=== PATIENT | female | born 1965 | race American Indian/Alaskan Native ===

== ENCOUNTER 2017-05-07 20:41 | Inpatient (IN) | payer BC ==
[2017-05-07 20:45] VITALS: BMI 30.2
--- NOTE | 2017-05-07 21:16 | ED PDOC ---
Arrival/HPI - General Chief Complaint: Weakness/Neurological Deficit Time Seen by Provider: 05/07/17 20:53 Historian: Patient - History of Present Illness Narrative History of Present Illness (Text): 05/07/17 21:05 A 51 year old female, whose past medical history includes CVA with no residual weakness and hyperlipidemia, presents to the emergency department complaining of right arm numbness since 13:00 today. Patient reports approximately 20 minutes prior to arrival she developed right arm heaviness and tingling in her right leg. Patient noted a mild headache and states she experienced a "burst of light" in bilateral eyes. She states her symptoms have slightly improved since. Patient notes decrease appetite for 1 week but denies any dizziness, fever, chills, nausea, vomiting, diarrhea, abdominal pain, urinary symptoms, chest pain, shortness of breath or any other complaints. Patient takes baby Aspirin daily. PMD: Dr. 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) Quality: Other Context: Home Past Medical History - Provider Review Nursing Documentation Reviewed: Yes - Infectious Disease Hx of Infectious Diseases: None - Cardiac Hx Cardiac Disorders: Yes - Pulmonary Hx Respiratory Disorders: Yes (SINUSITIS) - Neurological Hx Neurological Disorder: Yes Hx Transient Ischemic Attacks (TIA): Yes (11-08-16) - HEENT Hx HEENT Disorder: No - Renal Hx Renal Disorder: No - Endocrine/Metabolic Hx Endocrine Disorders: No - Hematological/Oncological Hx Blood Disorders: No - Integumentary Hx Dermatological Disorder: No - Musculoskeletal/Rheumatological Hx Musculoskeletal Disorders: No Hx Falls: No - Gastrointestinal Hx Gastrointestinal Disorders: No - Genitourinary/Gynecological Hx Genitourinary Disorders: No - Psychiatric Hx Psychophysiologic Disorder: No Hx Substance Use: No - Anesthesia Hx Anesthesia: No Family/Social History - Physician Review Nursing Documentation Reviewed: Yes Family/Social History: No Known Family HX Smoking Status: Never Smoked Hx Alcohol Use: No Hx Substance Use: No Allergies/Home Meds Allergies/Adverse Reactions: Allergies No Known Allergies Allergy (Verified 05/07/17 20:44) Review of Systems - Physician Review All systems were reviewed & negative as marked: Yes - Review of Systems Constitutional: Night Sweats. absent: Fevers Eyes: Vision Changes Respiratory: absent: SOB Cardiovascular: absent: Chest Pain Gastrointestinal: Appetite Changes (decrease appetite). absent: Abdominal Pain , Diarrhea, Nausea, Vomiting Genitourinary Female: absent: Dysuria, Frequency, Hematuria, Urine Output Changes Musculoskeletal: Other (Right arm numbness/heaviness, Right leg tingling) Neurological: Headache, Focal Weakness. absent: Dizziness Physical Exam Vital Signs Reviewed: Yes Vital Signs Temp Pulse Resp BP Pulse Ox 05/07/17 22:11 64 16 128/75 98 05/07/17 20:54 98.4 F 76 16 143/64 95 Temperature: Afebrile Blood Pressure: Normal Pulse: Regular Respiratory Rate: Normal Appearance: Positive for: Well-Appearing, Non-Toxic, Comfortable Pain Distress: None Mental Status: Positive for: Alert and Oriented X 3 Finger Stick Blood Glucose: 104 - Systems Exam Head: Present: Atraumatic, Normocephalic Pupils: Present: PERRL Extroacular Muscles: Present: EOMI Conjunctiva: Present: Normal Mouth: Present: Moist Mucous Membranes Pharnyx: Present: Normal. No: ERYTHEMA, EXUDATE Neck: Present: Normal Range of Motion Respiratory/Chest: Present: Clear to Auscultation, Good Air Exchange. No: Respiratory Distress, Accessory Muscle Use Cardiovascular: Present: Regular Rate and Rhythm, Normal S1, S2. No: Murmurs Abdomen: Present: Normal Bowel Sounds. No: Tenderness, Distention, Peritoneal Signs Back: Present: Normal Inspection Upper Extremity: Present: Normal Inspection, Normal ROM, NORMAL PULSES, Neurovascularly Intact. No: Cyanosis, Edema, Tenderness, Swelling, Erythema, Temperature Abnormalties, Deformity Lower Extremity: Present: Normal Inspection, NORMAL PULSES, Normal ROM, Neurovascularly Intact. No: Edema, CALF TENDERNESS, Tenderness, Swelling, Erythema, Deformity, Temperature Abnormalties Neurological: Present: GCS=15, CN II-XII Intact, Speech Normal, Motor Func Grossly Intact, Normal Sensory Function, Normal Cerebellar Funct, Norm Deep Tendon Reflexes, Gait Normal, Memory Normal Skin: Present: Warm, Dry, Normal Color. No: Rashes Psychiatric: Present: Alert, Oriented x 3, Normal Insight, Normal Concentration Medical Decision Making ED Course and Treatment: 05/07/17 21:05 Impression: A 51 year old female with right arm numbness/heaviness, right leg tingling, mild headache and vision changes. Patient reports her symptoms have improved since her arrival to the emergency room. NIHSS is zero. Differential: TIA vs. CVA Plan: -- Head CT -- Chest xray -- EKG -- Labs -- Urinalysis -- Reassess and disposition Progress Notes: 05/07/17 21:35 Chest xray read and interpreted by me, which shows no active disease. Report Date: 05/07/17 21:56 EXAM: CT Head Without Intravenous Contrast Dictated and Authenticated by: Zac Lam MD IMPRESSION: 1. No definite acute intracranial abnormality. Acute infarction may be CT occult within first 24 hours. If a focal deficit persists, consider followup CT or MRI for further evaluation. 2. Incidental/non-acute findings are described above. 05/07/17 22:20 Patient with noted history. NIHSS is zero and therefore not a tpa candidate. Brain CT with no acute findings. Case discussed with Dr. Pierre, covering Dr. Jennifer Murray, who agreed with 324 mg of asa and said to load with 300 mg of plavix and start on IVF. Case had been discussed with Dr. Singh for placement on her service. 05/07/17 22:33 Regarding patient's loss of appetite, she is afebrile. WBC is 12.7; CXR is normal. Urine is pending. 05/07/17 22:41 Patient's urine shows UTI; labs with mild leukocytosis - will start on iv abx for UTI. - Lab Interpretations Lab Results: 05/07/17 20:50 05/07/17 20:50 Lab Results 05/07/17 21:51: Urine Color Yellow, Urine Appearance Clear, Urine pH 6.0, Ur Specific [place] >= 1.030, Urine Protein Trace H, Urine Glucose (UA) Negative, Urine Ketones 15 H, Urine Blood Negative, Urine Nitrate Negative, Urine Bilirubin Negative, Urine Urobilinogen 1.0 H, Ur Leukocyte Esterase Moderate H, Urine RBC 2 - 5, Urine WBC 20 - 25, Ur Epithelial Cells 6 - 8, Urine Bacteria Many, Urine HCG, Qual Negative 05/07/17 21:00: Blood Type O POSITIVE, Antibody Screen Negative, BBK History Checked Patient has bt 05/07/17 20:50: Sodium 142, Potassium 3.7, Chloride 102, Carbon Dioxide 26, Anion Gap 18, BUN 11, Creatinine 0.7, Est GFR ( Amer) > 60, Est GFR (Non- Af Amer) > 60, Random Glucose 94, Calcium 9.4, Total Bilirubin 0.9, AST 29, ALT 47, Alkaline Phosphatase 71, Lactate Dehydrogenase 543, Total Creatine Kinase 97 , Troponin I < 0.01, NT-Pro-B Natriuret Pep 31.8, Total Protein 8.9 H, Albumin 4.6, Globulin 4.3, Albumin/Globulin Ratio 1.1, Triglycerides 94, Cholesterol 218 H, LDL Cholesterol Direct 146 H, HDL Cholesterol 51, Lipase 96 05/07/17 20:50: PT 12.4 H, INR 1.15 H, APTT 27.2 05/07/17 20:50: WBC 12.7 H D, RBC 4.49, Hgb 13.1, Hct 41.5, MCV 92.4, MCH 29.2, MCHC 31.6, RDW 14.3, Plt Count 737 H* D, MPV 10.1, Gran % 60.0, Lymph % (Auto) 31.2, [place] % (Auto) 8.2 H, Eos % (Auto) 0.5 L, Baso % (Auto) 0.1, Gran # 7.63 H , Lymph # 4.0 H, [place] # 1.1 H, Eos # 0.1, Baso # 0.01 I have reviewed the lab results: Yes - RAD Interpretation Radiology Orders: 05/07/17 21:05 HEAD W/O CONTRAST [CT] Stat CHEST ONE VIEW [RAD] Stat - Medication Orders Current Medication Orders: Sodium Chloride (Sodium Chloride 0.9%) 1,000 mls @ 100 mls/hr IV .Q10H STA Stop: 05/08/17 08:14 Last Admin: 05/07/17 22:39 Dose: 100 mls/hr Ceftriaxone Sodium (Rocephin 1 Gram Ivpb) 100 mls @ 200 mls/hr IV ONCE STA PRN Reason: Protocol Stop: 05/07/17 23:09 Discontinued Medications Aspirin (Aspirin Chewable) 324 mg PO STAT STA Stop: 05/07/17 22:08 Last Admin: 05/07/17 22:19 Dose: 324 mg Clopidogrel Bisulfate (Plavix) 300 mg PO STAT STA Stop: 05/07/17 22:17 Last Admin: 05/07/17 22:37 Dose: 300 mg NIHSS Scale ([place]) Time Performed: 21:05 - How Severe is the Stoke Baseline Level of Consciousness: 0=Alert LOC to Questions: 0=Both comments correct LOC to commands: 0=Obeys both correctly Best Gaze: 0=Normal Visual: 0=No visual loss Facial: 0=Normal Motor Arm - Left: 0=No drift Motor Arm - Right: 0=No drift Motor Leg - Left: 0=No drift Motor Leg - Right: 0=No drift Limb Ataxia: 0=Absent Sensory: 0=Normal Best Language: 0=No aphasia Dysarthia: 0=Normal articulation Extinction & Inattention (Neglect): 0=Normal, no object Score: 0 Risk Level: No Stroke Risk - Scribe Statement The provider has reviewed the documentation as recorded by the Alexib[place]uyễn [place] Provider Scribe Attestation: All medical record entries made by the Scribe were at my direction and personally dictated by me. I have reviewed the chart and agree that the record accurately reflects my personal performance of the history, physical exam, medical decision making, and the department course for this patient. I have also personally directed, reviewed, and agree with the discharge instructions and disposition. Disposition/Present on Arrival - Present on Arrival Any Indicators Present on Arrival: No History of DVT/PE: No History of Uncontrolled Diabetes: No Urinary Catheter: No History of Decub. Ulcer: No History Surgical Site Infection Following: None - Disposition Have Diagnosis and Disposition been Completed?: Yes Diagnosis: TIA (transient ischemic attack), Loss of appetite, Urinary tract infection Disposition: HOSPITALIZED Disposition Time: 21:30 Patient Plan: Observation, Telemetry Patient Problems: Current Active Problems Problem Status Onset Loss of appetite Acute TIA (transient ischemic attack) Acute Condition: FAIR
[2017-05-07 21:30] LABS: ALB/GLOB RATIO 1.1 (1.1-1.8); ALBUMIN 4.6 g/dL (3.0-4.8); ALT/SGPT 47 U/L (7-56); AST/SGOT 29 U/L (15-39); BLOOD UREA NITROGEN 11 mg/dL (7-21); CALCIUM 9.4 mg/dL (8.4-10.5); GFR AFRICAN-AMERICAN > 60; GFR NON-AFRICAN AMERICAN > 60; HDL CHOLESTEROL 51 mg/dL (29-60); LIPASE 96 U/L (23-300)
[2017-05-07 21:34] LABS: INR 1.15 (0.93-1.08); PARTIAL THROMBOPLASTIN TIME 27.2 Seconds (23.7-30.8); PROTHROMBIN TIME 12.4 Seconds (9.9-11.8)
[2017-05-07 21:40] LABS: LDL CHOLESTEROL 146 mg/dL (0-129)
[2017-05-07 21:41] LABS: B-TYPE NATRIURETIC PEPTIDE 31.8 pg/mL (0-450); TROPONIN I < 0.01 ng/mL
[2017-05-07 21:57] LABS: HEMOGLOBIN 13.1 gm/dL (12.0-16.0); MEAN CELL VOLUME 92.4 fL (80.0-105.0); MEAN CORPUSCULAR HEMOGLOBIN 29.2 pg (25.0-35.0); MEAN CORPUSCULAR HGB CONC 31.6 g/dl (31.0-37.0); RBC 4.49 10^6/uL (3.5-6.1); WHITE BLOOD COUNT 12.7 10^3/ul (4.5-11.0)
[2017-05-07 21:58] LABS: RED CELL DISTRIBUTION WIDTH 14.3 % (11.5-14.5)
[2017-05-07 22:00] LABS: BASO % 0.1 % (0.0-3.0); EOS # 0.1 (0.0-0.7); EOS % 0.5 % (1.5-5.0); GRAN # 7.63 (1.4-6.5); LYMPH % 31.2 % (22.0-35.0); MEAN PLATELET VOLUME 10.1 fl (7.0-11.0); MONO # 1.1 (0.1-0.6); MONO % 8.2 % (1.0-6.0); PLATELET COUNT 737 10^3/uL (120.0-450.0)
[2017-05-07 22:01] LABS: BASO # 0.01 K/mm3 (0.0-2.0)
[2017-05-07 22:11] LABS: HCG,QUALITATIVE URINE NEGATIVE (NEGATIVE); URINE APPEARANCE CLEAR (CLEAR); URINE COLOR YELLOW (YELLOW)
[2017-05-07 22:13] LABS: URINE BILIRUBIN NEGATIVE (NEGATIVE); URINE BLOOD NEGATIVE (NEGATIVE); URINE GLUCOSE (UA) NEGATIVE (NEGATIVE); URINE LEUKOCYTE ESTERASE MODERATE Leu/uL (NEGATIVE); URINE NITRATE NEGATIVE (NEGATIVE); URINE PROTEIN TRACE mg/dL (<30 mg/dL)
[2017-05-07] MEDS ORDERED: Sodium Chloride 0.9% 1,000 ML IV STA (22:15)
[2017-05-07 22:37] LABS: URINE BACTERIA MANY (NEG); URINE WBC 20 - 25 /hpf (0-6)
[2017-05-07] MEDS ORDERED: cefTRIAXone 1 gm 1 GM/100 ML BAG IV STA (22:40)
--- NOTE | 2017-05-08 08:19 | CT ---
PROCEDURE: CT HEAD WITHOUT CONTRAST. HISTORY: R arm heaviness COMPARISON: Prior head CT 11/08/2016 TECHNIQUE: Axial computed tomography images were obtained through the head/brain without intravenous contrast. Radiation dose: Total exam DLP = 677 mGy-cm. This CT exam was performed using one or more of the following dose reduction techniques: Automated exposure control, adjustment of the mA and/or kV according to patient size, and/or use of iterative reconstruction technique. FINDINGS: HEMORRHAGE: No intracranial hemorrhage. BRAIN: No mass effect or edema. No atrophy or chronic microvascular ischemic changes. VENTRICLES: Unremarkable. No hydrocephalus. CALVARIUM: Unremarkable. PARANASAL SINUSES: Unremarkable as visualized. No significant inflammatory changes. MASTOID AIR CELLS: Unremarkable as visualized. No inflammatory changes. OTHER FINDINGS: None. IMPRESSION: Normal CT of the Head. No significant interval change compared to prior head CT dated 11/08/2016. Consider follow-up CT or MRI if clinically indicated.
--- NOTE | 2017-05-08 08:44 | RAD ---
PROCEDURE: CHEST RADIOGRAPH, 1 VIEW HISTORY: R arm heaviness COMPARISON: 11/16/2016 FINDINGS: LUNGS: Clear. PLEURA: No pneumothorax or pleural fluid seen. CARDIOVASCULAR: Normal. OSSEOUS STRUCTURES: No significant abnormalities. VISUALIZED UPPER ABDOMEN: Normal. OTHER FINDINGS: None. IMPRESSION: No active disease.
--- NOTE | 2017-05-08 11:39 | CP.PCM.CON ---
History of Present Illness - History of Present Illness History of Present Illness: Mrs. Dejesus is a 51-year-old woman with a past medical history of dyslipidemia and previous stroke who states that yesterday she developed the sudden onset of visual halos, then had right arm shaking and weakness followed by right leg numbness and tingling. This lasted for about 20 minutes and then resolved. Today, she feels like is back to normal, but she feels like she has nervousness throughout her body and feels on edge. She has been feeling this was for the past week and has not had an appetite. She was on Aspirin 81 mg daily, but has not taken it for a few days since she has not eaten anything. Review of Systems - Review of Systems All systems: reviewed and no additional remarkable complaints except Past Patient History - Infectious Disease Hx of Infectious Diseases: None - Past Social History Smoking Status: Never Smoked - CARDIAC Hx Hypercholesterolemia: Yes - PULMONARY Hx Respiratory Disorders: Yes (SINUSITIS) - NEUROLOGICAL Hx Transient Ischemic Attacks (TIA): Yes (10/2016) - HEENT Hx HEENT Problems: Yes (Sinusitis) - RENAL Hx Chronic Kidney Disease: No - ENDOCRINE/METABOLIC Hx Endocrine Disorders: No - HEMATOLOGICAL/ONCOLOGICAL Hx Blood Disorders: No - INTEGUMENTARY Hx Dermatological Problems: No - MUSCULOSKELETAL/RHEUMATOLOGICAL Hx Falls: No - GASTROINTESTINAL Hx Gastrointestinal Disorders: No - GENITOURINARY/GYNECOLOGICAL Hx Urinary Tract Infection: Yes - PSYCHIATRIC Hx Substance Use: No - SURGICAL HISTORY Hx Surgeries: No - ANESTHESIA Hx Anesthesia: No Meds Allergies/Adverse Reactions: Allergies Allergy/AdvReac Type Severity Reaction Status Date / Time No Known Allergies Allergy Verified 05/07/17 20:44 - Medications Medications: Current Medications Aspirin (Ecotrin) 81 mg PO DAILY [facility] Last Admin: 05/08/17 10:54 Dose: 81 mg Atorvastatin Calcium (Lipitor) 80 mg PO DIN [facility] Physical Exam - Constitutional Appears: Well - Head Exam Head Exam: ATRAUMATIC, NORMAL INSPECTION, NORMOCEPHALIC - Eye Exam Eye Exam: EOMI, Normal appearance, PERRL - ENT Exam ENT Exam: Mucous Membranes Moist, Normal Exam - Neck Exam Neck exam: Positive for: Normal Inspection - Respiratory Exam Respiratory Exam: Clear to Auscultation Bilateral, NORMAL BREATHING PATTERN - Cardiovascular Exam Cardiovascular Exam: REGULAR RHYTHM, +S1, +S2 - GI/Abdominal Exam GI & Abdominal Exam: Normal Bowel Sounds, Soft. absent: Tenderness - Rectal Exam Rectal Exam: Deferred - Extremities Exam Extremities exam: Positive for: normal inspection - Back Exam Back exam: NORMAL INSPECTION - Neurological Exam Neurological exam: Alert, CN II-XII Intact, Normal Gait, Oriented x3, Reflexes Normal - Expanded Neurological Exam Expanded Patient oriented to: person, place, time Cranial nerves: EOM's Intact: Normal, Facial Sensation: Normal Ataxia: No Cerebellar Function: Finger to Nose: Normal Upper motor neuron: Babinski Sign: Normal, Jaime Neglect: Normal Sensory exam: Lower Extremity Light Touch: Normal, Lower Extremity Pin Prick: Normal, Upper Extremity Light Touch: Normal, Upper Extremity Pin Prick: Normal Neuro motor strength exam: Left Upper Extremity: 5, Right Upper Extremity: 5, Left Lower Extremity: 5, Right Lower Extremity: 5 DTR: Achilles Tendon Left: 2+, Achilles Tendon Right: 2+, Bicep Left: 2+, Bicep Right: 2+, Brachioradialis Left: 2+, Brachioradialis Right: 2+, Patellar Left: 2 +, Patellar Right: 2+, Tricep Left: 2+, Tricep Right: 2+ - Psychiatric Exam Psychiatric exam: Normal Affect, Normal Mood - Skin Skin Exam: Dry, Intact, Normal Color, Warm Results - Vital Signs Recent Vital Signs: Last Vital Signs Temp 98 F 05/08/17 06:00 Pulse 53 L 05/08/17 06:00 Resp 20 05/08/17 06:00 BP 120/71 05/08/17 06:00 Pulse Ox 98 05/08/17 06:00 - Labs Result Diagrams: 05/07/17 20:50 05/07/17 20:50 Labs: Laboratory Results - last 24 hr 05/08/17 07:30 POC Glucose (mg/dL) 111 H - Imaging and Cardiology CT scan - head Status: Image reviewed by me, Report reviewed by me (No acute findings. ) Assessment & Plan (1) TIA (transient ischemic attack) Assessment and Plan: The history of shaking and numbness/tingling preceded by a visual halo or aura is concerning for epileptiform discharges as well as a possible TIA. I recommend the followin. Telemetry 2. MRI of the brain with and without contrast 3. Echocardiogram with bubble study 4. Continue aspirin 81 mg daily 5. Continue lipitor 80 mg daily to maintain LDL< 100 6. Fluids with NS at 100 mL/hr 7. EEG awake and drowsy for 30 mins 8. DVT Px 9. PT/OT eval Thank you. Status: Acute Priority: High
--- NOTE | 2017-05-08 12:54 | CARD ---
APPROVED REPORT EKG Measurement Heart [id number] <Conclusion> Normal sinus rhythm Normal ECG
--- NOTE | 2017-05-08 13:51 | CP.PCM.CON ---
<Juan M Garcia - Last Filed: 05/08/17 16:00> History of Present Illness - History of Present Illness History of Present Illness: PGY4 Initial GI Consult Vickie Dejesus is a 51F w/ hx of CVA who presented to the ED with complaints of Right arm numbness and weakness. She is curretly being workup for TIA vs CVA vs seizure. GI was consulted for loss of appetite. Pt states that she has had a loss of appetite acutely for 1 week. She denies being nauseous prior today. Denies any fever, chills, diaphoresis, or diarrhea. She states that this symptoms is relatively new. Pt notes that she has lost around 15lbs since October and it was unintentional. She states that she has had some recent stress and anxiety in her life and may have subsequently lead to a lack of appetite. She denies any BRBPR, melena, hematachezia. Pt denies having a colonoscopy and endoscopy in the past. She has normal BM, which are formed and daily. Pt has no associated abd pain. She does mention a sour taste in her mouth for the past week. ROS: 12- point ROS conducted, neg other than what was stated above PMHX: CVA, HL PSHx: None Social hx: denies smoking, EtOH, or illicit drugs Family hx: HTN and HL, denies any colon a or GI Ca in the family Past Patient History - Infectious Disease Hx of Infectious Diseases: None - Past Social History Smoking Status: Never Smoked - CARDIAC Hx Hypercholesterolemia: Yes - PULMONARY Hx Respiratory Disorders: Yes (SINUSITIS) - NEUROLOGICAL Hx Transient Ischemic Attacks (TIA): Yes (10/2016) - HEENT Hx HEENT Problems: Yes (Sinusitis) - RENAL Hx Chronic Kidney Disease: No - ENDOCRINE/METABOLIC Hx Endocrine Disorders: No - HEMATOLOGICAL/ONCOLOGICAL Hx Blood Disorders: No - INTEGUMENTARY Hx Dermatological Problems: No - MUSCULOSKELETAL/RHEUMATOLOGICAL Hx Falls: No - GASTROINTESTINAL Hx Gastrointestinal Disorders: No - GENITOURINARY/GYNECOLOGICAL Hx Urinary Tract Infection: Yes - PSYCHIATRIC Hx Substance Use: No - SURGICAL HISTORY Hx Surgeries: No - ANESTHESIA Hx Anesthesia: No Meds Allergies/Adverse Reactions: Allergies Allergy/AdvReac Type Severity Reaction Status Date / Time No Known Allergies Allergy Verified 05/07/17 20:44 - Medications Medications: Current Medications Aspirin (Ecotrin) 81 mg PO DAILY [facility] Last Admin: 05/08/17 10:54 Dose: 81 mg Atorvastatin Calcium (Lipitor) 80 mg PO DIN [facility] Ceftriaxone Sodium (Rocephin 1 Gram Ivpb) 1 gm in 100 mls @ 100 mls/hr IVPB DAILY [facility] PRN Reason: Protocol Physical Exam - Constitutional Appears: Well, No Acute Distress - Head Exam Head Exam: ATRAUMATIC, NORMOCEPHALIC - Eye Exam Eye Exam: EOMI, Normal appearance - ENT Exam ENT Exam: Mucous Membranes Moist, Normal Exam - Respiratory Exam Respiratory Exam: Clear to Auscultation Bilateral, NORMAL BREATHING PATTERN - Cardiovascular Exam Cardiovascular Exam: REGULAR RHYTHM, +S1, +S2 - GI/Abdominal Exam GI & Abdominal Exam: Normal Bowel Sounds, Soft. absent: Diminished Bowel Sounds , Distended, Firm, Guarding, Mass, Organomegaly, Rigid, Tenderness - Extremities Exam Extremities exam: Positive for: normal inspection - Neurological Exam Neurological exam: Alert, Oriented x3 - Psychiatric Exam Psychiatric exam: Anxious, Depressed - Skin Skin Exam: Intact, Normal Color, Warm Results - Vital Signs Recent Vital Signs: Last Vital Signs Temp 98.7 F 05/08/17 11:46 Pulse 59 L 05/08/17 11:46 Resp 20 05/08/17 11:46 BP 125/76 05/08/17 11:46 Pulse Ox 98 05/08/17 06:00 - Labs Result Diagrams: 05/07/17 20:50 05/07/17 20:50 Labs: Laboratory Results - last 24 hr 05/08/17 07:30 POC Glucose (mg/dL) 111 H Assessment & Plan - Assessment and Plan (Free Text) Assessment: Vickie Dejesus is a 51F w/ hx of CVA who presented to the ED for right sided numbess. DDx: TIA vs CVA vs epilepsy. GI was consulted for loss of appetite, which was relatively new for about 1 week. The significant aspect of her current states is a 15lb unintentional weight loss with DDx include r/o malignancy vs depression. Loss of appiptite -continue current diet -recommend psych eval for depression and anxiety -continue reg diet Unintentional Weight loss -15lb loss in 6 months -recommend outpt colon screen for malignancy D/W Dr. Lynn <Jason Lynn - Last Filed: 05/08/17 18:51> Meds - Medications Medications: Current Medications Aspirin (Ecotrin) 81 mg PO DAILY [facility] Last Admin: 05/08/17 10:54 Dose: 81 mg Atorvastatin Calcium (Lipitor) 80 mg PO DIN [facility] Last Admin: 05/08/17 18:28 Dose: 80 mg Ceftriaxone Sodium (Rocephin 1 Gram Ivpb) 1 gm in 100 mls @ 100 mls/hr IVPB DAILY [facility] PRN Reason: Protocol Results - Vital Signs Recent Vital Signs: Last Vital Signs Temp 98.8 F 05/08/17 17:20 Pulse 64 05/08/17 18:00 Resp 20 05/08/17 17:20 BP 134/82 05/08/17 17:20 Pulse Ox 100 05/08/17 17:20 - Labs Result Diagrams: 05/07/17 20:50 05/07/17 20:50 Labs: Laboratory Results - last 24 hr 05/08/17 07:30 POC Glucose (mg/dL) 111 H Attending/Attestation - Attestation I have personally seen and examined this patient.: Yes I have fully participated in the care of the patient.: Yes I have reviewed all pertinent clinical information: Yes Notes (Text): 05/08/17 18:49 51 year old female with a h/o CVA who is admitted with neurological symptoms and evaluation for TIA, we are consulted for weight loss and poor appetite. 1. Loss of appetite 2. Weight loss Plan: -uncertain etiology -no obvious associated GI symptoms on review of systems -no prior GI evaluation -would recommend outpatient egd/colonoscopy to evaluate further and exclude malignancy -no alarm signs like anemia or rectal bleeding -diet as tolerated for now -may be anxiety component as patient admits to a nervous stomach -will sign off
[2017-05-08] MEDS ORDERED: Gadodiamide 287 MG/ML VIAL (15ML) IV ONE (15:01)
--- NOTE | 2017-05-08 16:43 | MRI ---
PROCEDURE: MRI BRAIN WITH AND WITHOUT CONTRAST HISTORY: Seizure like activity COMPARISON: 11/08/2016 MRI TECHNIQUE: Multiplanar, multisequence MR images of the brain were obtained with and without intravenous contrast enhancement. 15 cc of Omniscan FINDINGS: HEMORRHAGE: None DWI: No evidence of an acute or early subacute infarction. BRAIN PARENCHYMA: No mass,mass effect or edema. No atrophy or chronic microvascular ischemic changes. ENHANCEMENT: No abnormal intracranial enhancement. VENTRICLES: Unremarkable. No hydrocephalus. CRANIUM: Unremarkable. ORBITS: Grossly unremarkable. PARANASAL SINUSES/MASTOIDS: Clear VASCULAR SYSTEM: Skull base flow voids intact. OTHER FINDINGS: There is a partially empty sella which is a normal variation.. IMPRESSION: Unremarkable pre and post contrast enhanced MRI of the brain.
--- NOTE | 2017-05-08 23:49 | CP.PCM.HP ---
History of Present Illness - History of Present Illness History of Present Illness: 05/08 Narrative History of Present Illness (Text): A 51 year old female, whose past medical history includes CVA with no residual weakness and hyperlipidemia, presents to the emergency department complaining of right arm numbness since 13:00 today. Patient reports approximately 20 minutes prior to arrival she developed right arm heaviness and tingling in her right leg. Patient noted a mild headache and states she experienced a "burst of light" in bilateral eyes. She states her symptoms have slightly improved since. Patient notes decrease appetite for 1 week but denies any dizziness, fever, chills, nausea, vomiting, diarrhea, abdominal pain, urinary symptoms, chest pain, shortness of breath or any other complaints. Patient takes baby Aspirin daily. pt is seen and examined in her room , daughter is sitting in the room , all qs answered Present on Admission - Present on Admission Any Indicators Present on Admission: No Review of Systems - Constitutional Constitutional: As Per HPI - EENT Eyes: As Per HPI Ears: As Per HPI Nose/Mouth/Throat: As Per HPI - Breasts Breasts: As Per HPI - Cardiovascular Cardiovascular: As Per HPI - Respiratory Respiratory: As Per HPI - Gastrointestinal Gastrointestinal: As Per HPI - Genitourinary Genitourinary: As Per HPI - Reproductive: Female Reproductive:Female: As Per HPI - Menstruation Menstruation: As Per HPI - Musculoskeletal Musculoskeletal: As Per HPI - Integumentary Integumentary: As Per HPI - Neurological Neurological: As Per HPI - Psychiatric Psychiatric: As Per HPI - Endocrine Endocrine: As Per HPI - Hematologic/Lymphatic Hematologic: As Per HPI Past Patient History - Infectious Disease Hx of Infectious Diseases: None - Past Social History Smoking Status: Never Smoked - CARDIAC Hx Hypercholesterolemia: Yes - PULMONARY Hx Respiratory Disorders: Yes (SINUSITIS) - NEUROLOGICAL Hx Transient Ischemic Attacks (TIA): Yes (10/2016) - HEENT Hx HEENT Problems: Yes (Sinusitis) - RENAL Hx Chronic Kidney Disease: No - ENDOCRINE/METABOLIC Hx Endocrine Disorders: No - HEMATOLOGICAL/ONCOLOGICAL Hx Blood Disorders: No - INTEGUMENTARY Hx Dermatological Problems: No - MUSCULOSKELETAL/RHEUMATOLOGICAL Hx Falls: No - GASTROINTESTINAL Hx Gastrointestinal Disorders: No - GENITOURINARY/GYNECOLOGICAL Hx Urinary Tract Infection: Yes - PSYCHIATRIC Hx Substance Use: No - SURGICAL HISTORY Hx Surgeries: No - ANESTHESIA Hx Anesthesia: No Meds Allergies/Adverse Reactions: Allergies Allergy/AdvReac Type Severity Reaction Status Date / Time No Known Allergies Allergy Verified 05/07/17 20:44 Physical Exam - Constitutional Appears: Well - Head Exam Head Exam: ATRAUMATIC, NORMAL INSPECTION, NORMOCEPHALIC - Eye Exam Eye Exam: EOMI, Normal appearance, PERRL Pupil Exam: NORMAL ACCOMODATION, PERRL - ENT Exam ENT Exam: Mucous Membranes Moist, Normal Exam - Neck Exam Neck exam: Positive for: Normal Inspection - Respiratory Exam Respiratory Exam: Clear to Auscultation Bilateral, NORMAL BREATHING PATTERN - Cardiovascular Exam Cardiovascular Exam: REGULAR RHYTHM - GI/Abdominal Exam GI & Abdominal Exam: Normal Bowel Sounds, Soft. absent: Tenderness - Rectal Exam Rectal Exam: NORMAL INSPECTION - Exam Exam: Circumcision, NORMAL INSPECTION External exam: NORMAL EXTERNAL EXAM Speculum exam: NORMAL SPECULUM EXAM Bimanual exam: NORMAL BIMANUAL EXAM - Extremities Exam Extremities exam: Positive for: normal inspection - Back Exam Back exam: NORMAL INSPECTION - Neurological Exam Neurological exam: Alert, CN II-XII Intact, Normal Gait, Oriented x3, Reflexes Normal - Psychiatric Exam Psychiatric exam: Normal Affect, Normal Mood - Skin Skin Exam: Dry, Intact, Normal Color, Warm Results - Vital Signs Recent Vital Signs: Last Vital Signs Temp 98.8 F 05/08/17 17:20 Pulse 57 L 05/08/17 22:00 Resp 20 05/08/17 17:20 BP 134/82 05/08/17 17:20 Pulse Ox 100 05/08/17 17:20 - Labs Result Diagrams: 05/07/17 20:50 05/07/17 20:50 Labs: Laboratory Results - last 24 hr 05/08/17 07:30 POC Glucose (mg/dL) 111 H Assessment & Plan (1) Loss of appetite Status: Acute (2) TIA (transient ischemic attack) Status: Acute Priority: High (3) Urinary tract infection Status: Acute - Assessment and Plan (Free Text) Assessment: Assessment & Plan (1) TIA (transient ischemic attack) Assessment and Plan: The history of shaking and numbness/tingling preceded by a visual halo or aura is concerning for epileptiform discharges as well as a possible TIA. neuro recommendations are the followin. Telemetry 2. MRI of the brain with and without contrast 3. Echocardiogram with bubble study 4. Continue aspirin 81 mg daily 5. Continue lipitor 80 mg daily to maintain LDL< 100 6. Fluids with NS at 100 mL/hr 7. EEG awake and drowsy for 30 mins 8. DVT Px 9. PT/OT eval GI was consulted for loss of appetite, which was relatively new for about 1 week. The significant aspect of her current states is a 15lb unintentional weight loss with DDx include r/o malignancy vs depression. Loss of appiptite -continue current diet -recommend psych eval for depression and anxiety , will call dr valdez mabry -continue reg diet Unintentional Weight loss -15lb loss in 6 months -recommend outpt colon screen for malignancy d/d done with neuro , and pt daughter uti anb, started
[2017-05-09 06:51] LABS: HEMOGLOBIN 12.4 gm/dL (12.0-16.0); MEAN CELL VOLUME 90.8 fL (80.0-105.0); MEAN CORPUSCULAR HEMOGLOBIN 28.6 pg (25.0-35.0); MEAN CORPUSCULAR HGB CONC 31.6 g/dl (31.0-37.0); MEAN PLATELET VOLUME 9.6 fl (7.0-11.0); RBC 4.33 10^6/uL (3.5-6.1); RED CELL DISTRIBUTION WIDTH 13.7 % (11.5-14.5); WHITE BLOOD COUNT 8.4 10^3/ul (4.5-11.0)
[2017-05-09 07:01] LABS: BLOOD UREA NITROGEN 7 mg/dL (7-21); GFR AFRICAN-AMERICAN > 60; GFR NON-AFRICAN AMERICAN > 60
--- NOTE | 2017-05-09 09:10 | CP.PCM.CON ---
History of Present Illness - History of Present Illness History of Present Illness: Shortly pt is a 51 year old female, with not known previous psych h/o, pt was admitted on the medical floor for evaluation of right arm numbness, psych consult was called for evaluation of possible depression and insomnia. pt was seen and examined, discussed with staff, pt presented to have good personal hygiene, calm, cooperative. pt said that after she started to have TIA she was feeling more anxious, pt said "at times I feel anxiety, my heart beating fast", pt said that she is "upset and overthinking about my medical issues". pt denied feeling hopeless or helpless, pt denied thoughts of harming self or others, pt also denied panic attacks, "but I am worried about my health". pt denied v/a/t hallucinations, denied paranoid ideation, pt does not present to be psychotic. pt reported difficulties to fall and to stay asleep, pt said that she is constantly thinking about her job which she finds very stressful. 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 pt said that yesterday at night medical team gave her benadryl and "it helped a lot", pt was educated about sleep hygiene, about melatonin and benadryl. pt was receptive and appreciated. past psych h/o; denied family h/o: denied social h/o: pt lives in [place], with her daughter "we have perfect relationships", denied using alcohol, denied smoking, denied drugs. MSE: pt presented to be alert, oriented in self, time and place, good eye contact, good personal hygiene, speech was low volume, underproductive, mood "I am overthinking a lot", affect was constricted, but reactive,. mood congruent. thought process is coherent and goal directed, thought content: denied v/a/t hallucinations, denied paranoia, does not appear to be psychotic, denied thoughts of harming self or others. I/J are good, impulses are well controlled. Impression: r/o anxiety/depression due to C r/o adjustment d/o Plan: sleep hygiene possible sleep study (polysomnography) benadryl 25mg hs prn for insomnia melatonin 5mg hs prn for insomnia pt deemed not to be in imminent danger to self or others will sign off thank you very much for letting me to participate in care of your pt Past Patient History - Infectious Disease Hx of Infectious Diseases: None - Past Social History Smoking Status: Never Smoked - CARDIAC Hx Hypercholesterolemia: Yes - PULMONARY Hx Respiratory Disorders: Yes (SINUSITIS) - NEUROLOGICAL Hx Transient Ischemic Attacks (TIA): Yes (10/2016) - HEENT Hx HEENT Problems: Yes (Sinusitis) - RENAL Hx Chronic Kidney Disease: No - ENDOCRINE/METABOLIC Hx Endocrine Disorders: No - HEMATOLOGICAL/ONCOLOGICAL Hx Blood Disorders: No - INTEGUMENTARY Hx Dermatological Problems: No - MUSCULOSKELETAL/RHEUMATOLOGICAL Hx Falls: No - GASTROINTESTINAL Hx Gastrointestinal Disorders: No - GENITOURINARY/GYNECOLOGICAL Hx Urinary Tract Infection: Yes - PSYCHIATRIC Hx Substance Use: No - SURGICAL HISTORY Hx Surgeries: No - ANESTHESIA Hx Anesthesia: No Meds Allergies/Adverse Reactions: Allergies Allergy/AdvReac Type Severity Reaction Status Date / Time No Known Allergies Allergy Verified 05/07/17 20:44 - Medications Medications: Current Medications Aspirin (Ecotrin) 81 mg PO DAILY [facility] Last Admin: 05/08/17 10:54 Dose: 81 mg Atorvastatin Calcium (Lipitor) 80 mg PO DIN [facility] Last Admin: 05/08/17 18:28 Dose: 80 mg Famotidine (Pepcid) 40 mg PO HS [facility] Last Admin: 05/09/17 00:18 Dose: Not Given Ceftriaxone Sodium (Rocephin 1 Gram Ivpb) 1 gm in 100 mls @ 100 mls/hr IVPB DAILY [facility] PRN Reason: Protocol Results - Vital Signs Recent Vital Signs: Last Vital Signs Temp 98.7 F 05/09/17 05:25 Pulse 58 L 05/09/17 05:25 Resp 18 05/09/17 05:25 BP 107/69 05/09/17 05:25 Pulse Ox 99 05/09/17 05:25 - Labs Result Diagrams: 05/09/17 06:00 05/09/17 06:00 Labs: Laboratory Results - last 24 hr 05/09/17 05/09/17 06:00 06:00 WBC 8.4 D RBC 4.33 Hgb 12.4 Hct 39.3 MCV 90.8 MCH 28.6 MCHC 31.6 RDW 13.7 Plt Count 662 H MPV 9.6 Sodium 141 Potassium 3.9 Chloride 103 Carbon Dioxide 30 Anion Gap 12 BUN 7 Creatinine 0.8 Est GFR ( Amer) > 60 Est GFR (Non-Af Amer) > 60 Random Glucose 93 Calcium 9.0
[2017-05-09] MEDS: cefTRIAXone 1 gm 1 GM/100 ML BAG IVPB SCH (09:32)
--- NOTE | 2017-05-09 17:12 | CARD ---
APPROVED REPORT EXAM: Two-dimensional and M-mode echocardiogram with Doppler and color Doppler. INDICATION CVA/TIA 2D DIMENSIONS Left Atrium (2D)3.7 (1.6-4.0cm)IVSd0.8 (0.7-1.1cm) LVDd4.6 (3.9-5.9cm)PWd0.9 (0.7-1.1cm) LVDs2.8 (2.5-4.0cm)FS (%) 39.6 % LVEF (%)70.3 (>50%) M-Mode DIMENSIONS Aortic Root3.30 (2.2-3.7cm)Aortic Cusp Exc.2.00 (1.5-2.0cm) Aortic Valve AoV Peak Egmnopfg142.0cm/Rolo Peak GR.9mmHg Mitral Valve MV E Wrgnstpp46.2cm/sMV A Gmptwhdx89.4cm/sE/A ratio0.7 TDI Lateral E' Peak V9.36cm/sMedial E' Peak V6.34cm/sE/Lateral E'6.3 E/Medial E'9.3 Pulmonary Valve PV Peak Rncjgyuv65.4cm/sPV Peak Grad.3mmHg Tricuspid Valve TR Peak Mdgofcrz334uk/sRAP HIPCREKP34mfTdVM Peak Gr.34mmHg [id number] LEFT VENTRICLE The left ventricle is normal size. There is normal left ventricular wall thickness. The left ventricular function is normal. The left ventricular ejection fraction is within the normal range. There is normal LV segmental wall motion. Transmitral Doppler flow pattern is Grade I-abnormal relaxation pattern. RIGHT VENTRICLE The right ventricle is normal size. There is normal right ventricular wall thickness. The right ventricular systolic function is normal. ATRIA The left atrium size is normal. The right atrium size is normal. AORTIC VALVE The aortic valve is normal in structure. No aortic regurgitation is present. There is no aortic valvular stenosis. MITRAL VALVE The mitral valve is mildly thickened. There is no mitral valve regurgitation noted. TRICUSPID VALVE The tricuspid valve is normal in structure. There is mild tricuspid regurgitation. There is mild pulmonary hypertension. GREAT VESSELS The aortic root is normal in size. The IVC is normal in size and collapses >50% with inspiration. PERICARDIAL EFFUSION There is a trace loculated anterior pericardial effusion. <Conclusion> The left ventricle is normal size. There is normal left ventricular wall thickness. The left ventricular function is normal. The left ventricular ejection fraction is within the normal range. There is normal LV segmental wall motion. Transmitral Doppler flow pattern is Grade I-abnormal relaxation pattern. There is mild tricuspid regurgitation. There is mild pulmonary hypertension.
--- NOTE | 2017-05-09 22:43 | CP.PCM.PN ---
Subjective - Date & Time of Evaluation Date of Evaluation: 05/09/17 Time of Evaluation: 11:00 - Subjective Subjective: Shortly pt is a 51 year old female, with not known previous psych h/o, pt was admitted on the medical floor for evaluation of right arm numbness, psych consult was called for evaluation of possible depression and insomnia. pt was seen and examined, discussed with staff, pt presented to have good personal hygiene, calm, cooperative. pt said that after she started to have TIA she was feeling more anxious, pt said "at times I feel anxiety, my heart beating fast", pt said that she is "upset and overthinking about my medical issues". pt denied feeling hopeless or helpless, pt denied thoughts of harming self or others, pt also denied panic attacks, "but I am worried about my health". pt denied v/a/t hallucinations, denied paranoid ideation, pt does not present to be psychotic. pt reported difficulties to fall and to stay asleep, pt said that she is constantly thinking about her job which she finds very stressful. 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 pt said that yesterday at night medical team gave her benadryl and "it helped a lot", pt was educated about sleep hygiene, about melatonin and benadryl. pt was receptive and appreciated. Objective - Vital Signs/Intake and Output Vital Signs (last 24 hours): Temp Pulse Resp BP Pulse Ox 98.7 F 57 L 20 125/73 99 05/09/17 16:00 05/09/17 16:00 05/09/17 12:00 05/09/17 12:00 05/09/17 05:25 Intake and Output: 05/09/17 05/10/17 18:59 06:59 Intake Total 240 540 Balance 240 540 - Medications Medications: Current Medications Aspirin (Ecotrin) 81 mg PO DAILY [facility] Last Admin: 05/09/17 09:32 Dose: 81 mg Atorvastatin Calcium (Lipitor) 80 mg PO DIN [facility] Last Admin: 05/09/17 17:05 Dose: 80 mg Famotidine (Pepcid) 40 mg PO HS [facility] Last Admin: 05/09/17 21:32 Dose: 40 mg Ceftriaxone Sodium (Rocephin 1 Gram Ivpb) 1 gm in 100 mls @ 100 mls/hr IVPB DAILY [facility] PRN Reason: Protocol Last Admin: 05/09/17 09:32 Dose: 100 mls/hr - Labs Labs: 05/09/17 06:00 05/09/17 06:00 PT 12.4 Seconds (9.9-11.8) H 05/07/17 20:50 INR 1.15 (0.93-1.08) H 05/07/17 20:50 APTT 27.2 Seconds (23.7-30.8) 05/07/17 20:50 - Constitutional Appears: Well - Head Exam Head Exam: ATRAUMATIC, NORMAL INSPECTION, NORMOCEPHALIC - Eye Exam Eye Exam: EOMI, Normal appearance, PERRL Pupil Exam: NORMAL ACCOMODATION, PERRL - ENT Exam ENT Exam: Mucous Membranes Moist, Normal Exam - Neck Exam Neck Exam: Full ROM, Normal Inspection. absent: Lymphadenopathy - Respiratory Exam Respiratory Exam: Clear to Ausculation Bilateral, NORMAL BREATHING PATTERN - Cardiovascular Exam Cardiovascular Exam: REGULAR RHYTHM, +S1, +S2. absent: Murmur - GI/Abdominal Exam GI & Abdominal Exam: Soft, Normal Bowel Sounds. absent: Tenderness - Back Exam Back Exam: NORMAL INSPECTION - Neurological Exam Neurological Exam: Alert, Awake, CN II-XII Intact, Normal Gait, Oriented x3 - Psychiatric Exam Psychiatric exam: Normal Affect, Normal Mood - Skin Skin Exam: Dry, Intact, Normal Color, Warm Assessment and Plan (1) Loss of appetite Status: Acute (2) TIA (transient ischemic attack) Status: Acute (3) Urinary tract infection Status: Acute (4) Insomnia Status: Acute (5) Depression Status: Acute - Assessment and Plan (Free Text) Assessment: Impression: r/o anxiety/depression due to [facility] r/o adjustment d/o insomnia , tia , r/o seizure Plan: sleep hygiene possible sleep study (polysomnography) benadryl 25mg hs prn for insomnia melatonin 5mg hs prn for insomnia pt deemed not to be in imminent danger to self or others as per psyche . neuro and gi is on the case , will call sleep specialist on the case
[2017-05-10] MEDS: cefTRIAXone 1 gm 1 GM/100 ML BAG IVPB SCH (09:24)
--- NOTE | 2017-05-11 03:39 | PN ---
DATE: 05/10/2017 SUBJECTIVE: The patient seen and examined at bedside. Daughter is sitting at the bedside. The patient is looking better. Complaining about sleep. Otherwise, no nausea, vomiting, diarrhea. No hematuria or hematochezia. No swelling of leg. No chest pain or palpitations. No headache or dizziness. PHYSICAL EXAMINATION VITAL SIGNS: Temperature 98.2, pulse 57, blood pressure 113/74, respiratory rate 20. HEENT: Head is normocephalic, atraumatic. Eyes; PERRLA, extraocular muscles intact, conjunctivae clear. Nose patent. Mucous membrane moist. NECK: Supple. No carotid bruits or thyromegaly. CHEST: Bilaterally symmetrical. HEART: S1 and S2 positive. LUNGS: Clear to auscultation. ABDOMEN: Soft. Bowel sounds present. No organomegaly. EXTREMITIES: No edema. No cyanosis. NEUROLOGIC: The patient is awake and alert. Moving all four extremities. No focal deficit. LABORATORY DATA: White blood cell 8.4, hemoglobin 12.4, hematocrit 39.3, platelets 662. Sodium 141, potassium 3.9, BUN 7, creatinine 0.8, glucose 121. MEDICATIONS: Ecotrin, Lipitor, Pepcid, Rocephin, and Xanax. ASSESSMENT AND PLAN: Vickie Dejesus is a 51-year-old lady with leukocytosis improved, thrombocytosis, hyperglycemia, proteinuria, urinary tract infection, getting antibiotics, and as per patient is feeling better after antibiotics. Seen by GI,and the neurologist. Numbness has gotten better. Complained about insomnia, sleep specialist consult called. History of transient ischemic attack and anxiety, seen by the psychiatrist. No hallucinations or delusions. Improved sleep hygiene. Plan for insomnia is melatonin as per psychiatrist. CAT scan of the head done, chest x-rays done, reviewed by me, look within normal limits. According to neurologist, continue aspirin and Lipitor and have EEG, DVT prophylaxis, PT and OT evaluation and treatment. Neurologist recommending echocardiography with bubble study, awaiting from the cardiology. We will follow. Breann Singh MD ERIC
[2017-05-11] MEDS: cefTRIAXone 1 gm 1 GM/100 ML BAG IVPB SCH (09:33)
--- NOTE | 2017-05-12 01:19 | CON ---
DATE: 05/07/2017 REFERRING PHYSICIAN: Dr. Singh. REASON FOR CONSULTATION: Insomnia, loud snoring, daytime sleepy and tired, pulmonary hypertension, admitted with TIA. HISTORY OF PRESENT ILLNESS: This is a 51-year-old female with past medical history unremarkable; came into emergency room with right upper extremity numbness, failing, and some weakness. *------* seen neurologist while in the hospital. Also complaining about insomnia, multiple-night awakening, snoring, daytime sleepy, seen by psychiatry. Started on Benadryl and melatonin. No chest pain. No nausea. No vomiting. No diarrhea. No leg pain or leg swelling. PAST MEDICAL HISTORY: No significant cardiopulmonary disease reported. SOCIAL HISTORY: Denied any smoking or alcohol use. FAMILY HISTORY: No significant cardiopulmonary disease reported. MEDICATION: She is on Ecotrin 81 mg daily, Lipitor 80 mg daily, Pepcid 40 mg daily, Rocephin 1 mg daily, Xanax 0.25 mg daily. REVIEW OF SYSTEMS: No headache. No rhinitis. No chest pain. Admits to have snoring, daytime sleepy . Short of breath with exertion. No nausea. No vomiting. No diarrhea. No leg pain or leg swelling. Right upper extremity tingling is better. PHYSICAL EXAMINATION GENERAL: Sitting at side of the bed. Family is at bedside. No acute distress. VITAL SIGNS: Temperature is 98, heart is 60, respiratory rate is 21, blood pressure 118/74, pulse ox of 99% on room air. HEENT: Moist mucous membranes. Crowded airway. Mallampati score is III. NECK: Supple. No JVD. LUNGS: Fair airflow with some rhonchi. HEART: S1 and S2. ABDOMEN: Soft, nontender. No organomegaly. EXTREMITIES: No edema. NEUROLOGIC: Awake and alert. Follows simple commands. LABORATORY DATA: Show hemoglobin of 12.4, hematocrit 39.3, WBC 8.4, platelet count is 662. INR 1.15, PTT is 27. Sodium 141, potassium 2.9, chloride 103, bicarbonate 30, BUN 7, creatinine 0.8, glucose 93, calcium is 9.0. Urinalysis shows wbv 20-25, rbc 2-5, bacteria are many. Microbiology: Urine culture so far, there is no growth. Head echocardiogram done, which suggests cardiac diastolic dysfunction and mild pulmonary hypertension. Had MRI of the brain done, which was unremarkable pre and post contrast enhanced MRI of the brain. Chest x-ray was done on admission, which shows no active disease. IMPRESSION AND PLAN: Probably transient ischemic attack, pulmonary hypertension, cardiac diastolic dysfunction, insomnia, may have sleep apnea syndrome and have thrombocytosis. Case discussed with the patient's family at bedside, all the question answered. We will add melatonin 6 mg at bedtime. Keep head elevated at 45 degrees. We will suggest getting attended sleep study as outpatient. We will suggest getting workup for thrombocytosis. Neurology followup. Homero De La Torre MD
[2017-05-12 06:46] LABS: HEMOGLOBIN 12.5 gm/dL (12.0-16.0); MEAN CELL VOLUME 90.8 fL (80.0-105.0); MEAN CORPUSCULAR HEMOGLOBIN 28.9 pg (25.0-35.0); MEAN CORPUSCULAR HGB CONC 31.8 g/dl (31.0-37.0); MEAN PLATELET VOLUME 9.4 fl (7.0-11.0); RBC 4.33 10^6/uL (3.5-6.1); RED CELL DISTRIBUTION WIDTH 13.7 % (11.5-14.5); WHITE BLOOD COUNT 10.9 10^3/ul (4.5-11.0)
--- NOTE | 2017-05-12 07:46 | PN ---
SUBJECTIVE: The patient is a 51-year-old female. The patient is seen and examined at the bedside, looking comfortable. Daughter and son are sitting at the bedside. No nausea, vomiting, or diarrhea. No hematuria or hematochezia. No swelling of the leg. No chest pain or palpitation. Went for bilateral Doppler of the neck, results are pending. As per processing manager, the patient is going tomorrow for echocardiography. PHYSICAL EXAMINATION VITAL SIGNS: Temperature 98.5, pulse 60, blood pressure 118/74, and respiratory rate 20. HEENT: Head is normocephalic and atraumatic. Eyes; PERRLA, extraocular muscles intact, conjunctivae clear. Nose patent. Mucous membranes moist. NECK: Supple. No carotid bruits. No thyromegaly. CHEST: Bilaterally symmetrical. HEART: S1 and S2 positive. LUNGS: Clear to auscultation. ABDOMEN: Soft. Bowel sounds present. No organomegaly. EXTREMITIES: No edema. No cyanosis. NEUROLOGIC: The patient is awake and alert. Moving all four extremities. No focal deficit. MEDICATIONS: Ecotrin, Lipitor, Pepcid, ceftriaxone, and Xanax. LABORATORY DATA: White blood cells 8.4, hemoglobin 12.4, hematocrit 39.3, and platelets 662. Sodium 141, potassium 3.9, BUN 7, creatinine 0.8, and glucose 141 and 121. ASSESSMENT AND PLAN: Ms. Oleg Johnston is a 51-year-old female with multiple medical problems, urinary tract infection, history of leukocytosis, improved, thrombocytosis, hyperglycemia, proteinuria, urinary tract infection, getting antibiotics; as per the patient, she is feeling better. Gastrointestinal, neurologist, and psychiatrist is on the case. The patient is complaining about insomnia, sleep specialist consult called. The patient went for bilateral carotid Doppler of the neck, results are pending. The patient is going for echocardiography tomorrow. Gastrointestinal and deep venous thrombosis prophylaxis. Repeat labs. We will follow up. Breann Singh MD
[2017-05-12 07:52] VITALS: BP 107/71; PULSE 66; RESP 18; TEMP 98.1; O2SAT 100
[2017-05-12] MEDS: cefTRIAXone 1 gm 1 GM/100 ML BAG IVPB SCH (09:06)
--- NOTE | 2017-05-12 11:33 | US ---
PROCEDURE: Bilateral carotid artery duplex ultrasound HISTORY: Carotid stenosis TIA PHYSICIAN(S): Damien Mcneil MD. TECHNIQUE: Duplex sonography and color-flow Doppler were used to evaluate the carotid bifurcations and limited segments of the vertebral arteries bilaterally. FINDINGS: There is mild to moderate focal hypoechoic plaque, greater on the left than the right, noted at the carotid bifurcations bilaterally. The peak systolic velocity in the proximal right internal carotid artery is 89 cm/sec. This corresponds to a 20 to 39% proximal right ICA stenosis. Normal systolic velocities are noted in the proximal right external carotid artery. There is antegrade flow in the right vertebral artery. The peak systolic velocity in the proximal left internal carotid artery is 107 cm/sec. This corresponds to a 40-59 percent proximal left ICA stenosis. Normal systolic velocities are noted in the proximal left external carotid artery. There is antegrade flow in the left vertebral artery. IMPRESSION: 1. 40-59 percent proximal left ICA stenosis. 2. 20-39 percent proximal right ICA stenosis 3. Antegrade flow in both vertebral arteries.
--- NOTE | 2017-05-12 13:50 | CARD ---
APPROVED REPORT EXAM: Two-dimensional and M-mode echocardiogram with Doppler and color Doppler. INDICATION R/O PFO/BUBBLE STUDY/TIA <Conclusion> This is a limitted Repaeat study to assess PFO by Bubble study: Findings: Intra atrial septal aneurysm noted but no PFO by color flow or Bubble study, " Negative stusy for PFO"
--- NOTE | 2017-05-12 14:57 | PN ---
DATE: 05/12/2017 REASON FOR CONSULTATION: Bubble study, TIA. *------*. BRIEF CLINICAL HISTORY: This is a 51-year-old female with past medical history hypertension, hyperlipidemia, history of stroke in September, admitted yesterday with shaking upper extremity and numbness brought here. The patient's echocardiogram was called due to the bubble study. The patient denies any chest pain, shortness of breath, any palpitation. PHYSICAL EXAMINATION VITAL SIGNS: As follows; temperature afebrile, heart rate 66, and blood pressure 107/71. HEENT: PERRLA. Extraocular muscles are intact. NECK: Supple. No carotid bruits or thyromegaly. CHEST: Clear to auscultation. HEART: S1 and S2. Regular. ABDOMEN: Soft. EXTREMITIES: Clubbing and cyanosis negative. LABORATORY DATA: Blood workup as follows, WBC 10.8, hemoglobin 12.1, hematocrit 39.3, and platelet count 629. Chemistry shows sodium 141, potassium 3.9, chloride 103, carbon dioxide 30, anion gap of 12, BUN 7, and creatinine 0.8. IMPRESSION: Recurrent transient ischemic attack, history of hypolipidemia and history of stroke in the past. The patient had echocardiography done on 05/09/[address] Berger that shows normal LV function, ejection fraction is in normal limit. No segmental wall motion. Mild tricuspid regurgitation, mild pulmonary insufficiency. RECOMMENDATION: We will repeat echo just limited to the bubble study to rule out any PFO. MRI of the brain is unremarkable. Post-contrast enhanced brain, no evidence of CVA noted. Further recommendation after the bubble study. Homero Wallace MD
--- NOTE | 2017-05-12 17:27 | PN ---
DATE: 05/12/2017 ADDENDUM REASON FOR ADDENDUM: The patient underwent bowel study that shows no evidence of PFO. Bowel study was negative. We will notify Dr. Singh. Thank you Dr. Singh for providing me the opportunity in taking care of patient, Vickie Dejesus. Homero Wallace MD
== END 2017-05-12 12:18 | disposition home or self-care (01) | DRG 69 ==
LOC: ED 20:41 → ERH 22:31 → 2RNO 05-08 00:24 → OBSVTOIN 05-08 23:52 → 3RNO 05-09 11:38
PROVIDERS: ADMIT Internal Medicine; ATTEND Internal Medicine
DX: G45.9 Transient cerebral ischemic attack, unspecified (principal); I27.2 Other secondary pulmonary hypertension; N39.0 Urinary tract infection, site not specified; I07.1 Rheumatic tricuspid insufficiency; I10 Essential (primary) hypertension; R63.0 Anorexia; E78.00 Pure hypercholesterolemia, unspecified; E78.5 Hyperlipidemia, unspecified; F32.89 Other specified depressive episodes; F41.9 Anxiety disorder, unspecified; D47.3 Essential (hemorrhagic) thrombocythemia; G47.00 Insomnia, unspecified; H53.19 Other subjective visual disturbances; I09.89 Other specified rheumatic heart diseases; Z79.82 Long term (current) use of aspirin; Z79.899 Other long term (current) drug therapy; Z82.49 Family history of ischemic heart disease and other diseases of the circulatory system; Z86.73 Personal history of transient ischemic attack (TIA), and cerebral infarction without residual deficits; Z87.440 Personal history of urinary (tract) infections; J32.9 Chronic sinusitis, unspecified; R63.4 Abnormal weight loss

== ENCOUNTER 2017-06-12 00:46 | Emergency (ER) | payer BC ==
[2017-06-12 00:54] VITALS: BMI 28.9
--- NOTE | 2017-06-12 01:56 | ED PDOC ---
Arrival/HPI - General Chief Complaint: Chest Pain Time Seen by Provider: 06/12/17 01:51 Historian: Patient - History of Present Illness Narrative History of Present Illness (Text): 06/12/17 01:55 Vickie Dejesus is a 51 year old female, whose past medical history includes dyslipidemia and CVA, who presents to the Emergency department complaining of epigastric/chest discomfort. Patient states she had a sandwich, orange soda, and candy for dinner yesterday and began experiencing burning epigastric/chest discomfort and belching at 20:00. Patient states symptoms feel similar to acid reflux. Patient denies any fever, chills, shortness of breath, nausea, vomiting , diarrhea, urinary symptoms, back pain, neck pain, headache, dizziness, or any other complaints. Time/Duration: 4-6 hours (20:00) Symptom Onset: Gradual Symptom Course: Unchanged Quality: Burning Activities at Onset: Light, Eating Context: Home Past Medical History - Provider Review Nursing Documentation Reviewed: Yes - Infectious Disease Hx of Infectious Diseases: None - Cardiac Hx Cardiac Disorders: Yes - Pulmonary Hx Respiratory Disorders: Yes (SINUSITIS) - Neurological Hx Transient Ischemic Attacks (TIA): Yes (10/2016) - HEENT Hx HEENT Disorder: Yes (Sinusitis) - Renal Hx Renal Disorder: No - Endocrine/Metabolic Hx Endocrine Disorders: No - Hematological/Oncological Hx Blood Disorders: No - Integumentary Hx Dermatological Disorder: No - Musculoskeletal/Rheumatological Hx Falls: No - Gastrointestinal Hx Gastrointestinal Disorders: No - Genitourinary/Gynecological Hx Urinary Tract Infection: Yes - Psychiatric Hx Psychophysiologic Disorder: No Hx Substance Use: No - Anesthesia Hx Anesthesia: No Family/Social History - Physician Review Nursing Documentation Reviewed: Yes Family/Social History: Unknown Family HX Smoking Status: Never Smoked Hx Alcohol Use: No Hx Substance Use: No Allergies/Home Meds Allergies/Adverse Reactions: Allergies No Known Allergies Allergy (Verified 05/07/17 20:44) Review of Systems - Physician Review All systems were reviewed & negative as marked: Yes - Review of Systems Constitutional: Normal. absent: Fevers Eyes: Normal ENT: Normal Respiratory: Normal. absent: SOB, Cough Gastrointestinal: Abdominal Pain, Other (+gassy) Genitourinary Female: Normal. absent: Dysuria, Frequency, Hematuria, Urine Output Changes Musculoskeletal: Normal. absent: Back Pain, Neck Pain Skin: Normal. absent: Rash Neurological: Normal. absent: Headache, Dizziness Endocrine: Normal Hemo/Lymphatic: Normal Psychiatric: Normal Physical Exam Vital Signs Reviewed: Yes Vital Signs Temp Pulse Resp BP Pulse Ox 06/12/17 04:55 97.9 F 54 L 18 138/82 99 06/12/17 04:29 56 L 16 124/75 99 06/12/17 02:47 66 16 123/67 99 06/12/17 01:12 98.3 F 58 L 17 143/77 97 Temperature: Afebrile Blood Pressure: Normal Pulse: Regular Respiratory Rate: Normal Appearance: Positive for: Well-Appearing, Non-Toxic, Comfortable Pain Distress: None Mental Status: Positive for: Alert and Oriented X 3 - Systems Exam Head: Present: Atraumatic, Normocephalic Pupils: Present: PERRL Extroacular Muscles: Present: EOMI Conjunctiva: Present: Normal Mouth: Present: Moist Mucous Membranes Neck: Present: Normal Range of Motion Respiratory/Chest: Present: Clear to Auscultation, Good Air Exchange. No: Respiratory Distress, Accessory Muscle Use Cardiovascular: Present: Regular Rate and Rhythm, Normal S1, S2. No: Murmurs Abdomen: Present: Normal Bowel Sounds. No: Tenderness, Distention, Peritoneal Signs Back: Present: Normal Inspection Upper Extremity: Present: Normal Inspection. No: Cyanosis, Edema Lower Extremity: Present: Normal Inspection. No: Edema Neurological: Present: GCS=15, CN II-XII Intact, Speech Normal Skin: Present: Warm, Dry, Normal Color. No: Rashes Psychiatric: Present: Alert, Oriented x 3, Normal Insight, Normal Concentration Medical Decision Making ED Course and Treatment: 06/12/17 01:56 Impression: 51 year old female complaining of burning epigastric discomfort with associated belching since 20:00 Differential Diagnosis included but are not limited to: GERD Plan: -- EKG -- Chest X-ray -- Labs, cardiac enzymes -- IV fluids -- Protonix -- Elixir -- Maalox -- Reassess and disposition Prior Visits: Notes and results from previous visits were reviewed. On 05/07/2017, pt was seen in the Emergency department for right arm numbness/ tingling with headache. Pt was admitted to the hospital for further evaluation. Progress Notes: Reviewed EKG, sinus bradycardia at 56 bpm. Non-specific ST/T wave changes. 06/12/17 03:07 Reviewed radiology, Chest X-ray shows no acute processes. 06/12/17 04:55 On reevaluation the patient feels better and is in no acute distress. I have discussed the results and plan with the patient, who expresses understanding. Patient given the opportunity to ask question, all questions were answered and there is agreement with the plan to discharge the patient home. Patient is stable for discharge. Patient was instructed to follow up with physician/clinic in 1-2 days or return if symptoms persist/worsen or new concerning symptoms arise. - Lab Interpretations Lab Results: 06/12/17 01:10 06/12/17 01:10 Lab Results 06/12/17 01:10: PT 12.1 H, INR 1.12 H, APTT 29.1 06/12/17 01:10: WBC 11.2 H, RBC 4.00, Hgb 11.8 L, Hct 37.1, MCV 92.8, MCH 29.5, MCHC 31.8, RDW 14.0, Plt Count 723 H*, MPV 9.5 06/12/17 01:10: Sodium 140, Potassium 3.6, Chloride 101, Carbon Dioxide 30, Anion Gap 13, BUN 13, Creatinine 0.7, Est GFR ( Amer) > 60, Est GFR (Non- Af Amer) > 60, Random Glucose 96, Calcium 9.2, Total Bilirubin 0.5, AST 46 H, ALT 41, Alkaline Phosphatase 64, Lactate Dehydrogenase 498, Total Creatine Kinase 117, Troponin I < 0.01, Total Protein 7.5, Albumin 4.1, Globulin 3.4, Albumin/Globulin Ratio 1.2, Lipase 114 I have reviewed the lab results: Yes - RAD Interpretation Radiology Orders: 06/12/17 01:57 CHEST PORTABLE [RAD] Stat - EKG Interpretation Interpreted by ED Physician: Yes Type: 12 lead EKG - Medication Orders Current Medication Orders: Sodium Chloride (Sodium Chloride 0.9%) 1,000 mls @ 100 mls/hr IV .Q10H VALERY Last Admin: 06/12/17 04:56 Dose: 100 mls/hr Discontinued Medications Al Hydrox/Mg Hydrox/Simethicone (Maalox Plus 30 Ml) 30 ml PO STAT STA Stop: 06/12/17 01:59 Last Admin: 06/12/17 02:12 Dose: 30 ml Belladonna/Phenobarbital ( Elixir) 5 ml PO STAT STA Stop: 06/12/17 01:59 Last Admin: 06/12/17 02:22 Dose: 5 ml Ketorolac Tromethamine (Toradol) 30 mg IVP ONCE ONE Stop: 06/12/17 03:15 Last Admin: 06/12/17 03:29 Dose: 30 mg Metoclopramide HCl (Reglan) 10 mg IVP ONCE ONE Stop: 06/12/17 04:12 Last Admin: 06/12/17 04:20 Dose: 10 mg Pantoprazole Sodium (Protonix Inj) 40 mg IVP ONCE STA Stop: 06/12/17 01:58 Last Admin: 06/12/17 02:12 Dose: 40 mg - Scribe Statement The provider has reviewed the documentation as recorded by the Ines Verduzco Provider Scribe Attestation: All medical record entries made by the Alexibnguyễn were at my direction and personally dictated by me. I have reviewed the chart and agree that the record accurately reflects my personal performance of the history, physical exam, medical decision making, and the department course for this patient. I have also personally directed, reviewed, and agree with the discharge instructions and disposition. Disposition/Present on Arrival - Present on Arrival Any Indicators Present on Arrival: No History of DVT/PE: No History of Uncontrolled Diabetes: No Urinary Catheter: No History of Decub. Ulcer: No History Surgical Site Infection Following: None - Disposition Have Diagnosis and Disposition been Completed?: Yes Diagnosis: GERD (gastroesophageal reflux disease) Disposition: HOME/ ROUTINE Disposition Time: 04:55 Patient Plan: Discharge Patient Problems: Current Active Problems Problem Status Onset GERD (gastroesophageal reflux disease) Acute Condition: GOOD Discharge Instructions (ExitCare): Gastroesophageal Reflux Disease (ED) Additional Instructions: medication as prescribed/follow up with your doctor this week Prescriptions: Pantoprazole Sodium [Protonix] 40 mg PO DAILY #14 ect Referrals: Breann Singh MD [Primary Care Provider] - Follow up with primary Forms: [employer] (Kiswahili)
[2017-06-12] MEDS ORDERED: Atrop/Hyosc/Scopal/PB Elixir (120 ml) PO STA (01:58)
[2017-06-12] MEDS ORDERED: Alum-Mag Hydrox-Simethicone Susp (30 mL) PO STA (01:58)
[2017-06-12] MEDS: Sodium Chloride 0.9% 1,000 ML IV SCH ×2 (02:11→04:56)
[2017-06-12 02:25] LABS: HEMATOCRIT 37.1 % (36.0-48.0); MEAN CELL VOLUME 92.8 fl (80.0-105.0); MEAN CORPUSCULAR HEMOGLOBIN 29.5 pg (25.0-35.0); MEAN CORPUSCULAR HGB CONC 31.8 g/dl (31.0-37.0); MEAN PLATELET VOLUME 9.5 fl (7.0-11.0); WHITE BLOOD COUNT 11.2 10^3/ul (4.5-11.0)
[2017-06-12 02:31] LABS: INR 1.12 (0.93-1.08); PARTIAL THROMBOPLASTIN TIME 29.1 Seconds (23.7-30.8)
[2017-06-12 02:37] LABS: ALB/GLOB RATIO 1.2 (1.1-1.8); ALKALINE PHOSPHATASE 64 U/L (38-133); ALT/SGPT 41 U/L (7-56); AST/SGOT 46 U/L (15-39); BILIRUBIN,TOTAL 0.5 mg/dL (0.2-1.3); BLOOD UREA NITROGEN 13 mg/dL (7-21); CALCIUM 9.2 mg/dL (8.4-10.5); CARBON DIOXIDE 30 mmol/L (21-33); CHLORIDE 101 mmol/L (98-107); GFR AFRICAN-AMERICAN > 60; GLUCOSE,RANDOM 96 mg/dL (70-110); LIPASE 114 U/L (23-300); POTASSIUM 3.6 mmol/L (3.6-5.0); SODIUM 140 mmol/L (132-148); TOTAL PROTEIN 7.5 g/dL (5.8-8.3)
[2017-06-12 02:47] VITALS: O2SAT 99
[2017-06-12 02:59] LABS: TROPONIN I < 0.01 ng/mL
[2017-06-12 04:56] VITALS: BP 138/82; PULSE 54; RESP 18; TEMP 97.9
--- NOTE | 2017-06-12 07:37 | RAD ---
HISTORY: abdominal pain COMPARISON: 05/07/2017 FINDINGS: LUNGS: No active pulmonary disease. PLEURA: No significant pleural effusion identified, no pneumothorax apparent. CARDIOVASCULAR: Normal. OSSEOUS STRUCTURES: No significant abnormalities. VISUALIZED UPPER ABDOMEN: Normal. OTHER FINDINGS: None. IMPRESSION: No active disease.
--- NOTE | 2017-06-12 19:59 | CARD ---
APPROVED REPORT EKG Measurement Heart [id number] <Conclusion> Sinus bradycardia Minimal voltage criteria for LVH, may be normal variant Borderline ECG
== END 2017-06-12 05:10 | disposition home or self-care (01) ==
LOC: ED 00:46
DX: K21.9 Gastro-esophageal reflux disease without esophagitis (principal); E78.5 Hyperlipidemia, unspecified; Z86.73 Personal history of transient ischemic attack (TIA), and cerebral infarction without residual deficits
CPT/HCPCS: 71010; 80053; 82550; 83615; 83690; 84484; 85027; 85610; 85730; 93005; 96361; 96374; 96375; 99284; C9113; J1885; J2765; J7040

== ENCOUNTER 2017-10-14 06:01 | Inpatient (IN) | payer BC ==
--- NOTE | 2017-10-14 06:15 | ED PDOC ---
Arrival/HPI - General Time Seen by Provider: 10/14/17 06:04 - History of Present Illness Narrative History of Present Illness (Text): 10/14/17 06:12 52 yo femlae, hx of previous cva, hld, presnets with right sided "heaviness" and weakness and right arm numbness. pt reports smptoms started 30 min arrival ( with some numbness last night). noted previous admission with similar. also noted previous mri with small frontal infarct. at this time, pt reports symptoms resolved. no fevers, cough, n/v/d, connell, blurry vision, or other complaints. 10/14/17 06:14 Past Medical History - Infectious Disease Hx of Infectious Diseases: None - Cardiac Hx Cardiac Disorders: Yes - Pulmonary Hx Respiratory Disorders: Yes (SINUSITIS) - Neurological Hx Transient Ischemic Attacks (TIA): Yes (10/2016) - HEENT Hx HEENT Disorder: Yes (Sinusitis) - Renal Hx Renal Disorder: No - Endocrine/Metabolic Hx Endocrine Disorders: No - Hematological/Oncological Hx Blood Disorders: No - Integumentary Hx Dermatological Disorder: No - Musculoskeletal/Rheumatological Hx Falls: No - Gastrointestinal Hx Gastrointestinal Disorders: No - Genitourinary/Gynecological Hx Urinary Tract Infection: Yes - Psychiatric Hx Psychophysiologic Disorder: No Hx Substance Use: No - Anesthesia Hx Anesthesia: No Family/Social History - Physician Review Nursing Documentation Reviewed: Yes Family/Social History: Unknown Family HX Smoking Status: Never Smoked Hx Alcohol Use: No Hx Substance Use: No Allergies/Home Meds Allergies/Adverse Reactions: Allergies No Known Allergies Allergy (Verified 10/14/17 06:18) Home Medications: Home Meds Medication Instructions Recorded Confirmed Atorvastatin [Lipitor] 10 mg PO DIN 10/14/17 10/14/17 Review of Systems - Review of Systems Constitutional: Normal Eyes: Normal ENT: Normal Respiratory: Normal Cardiovascular: Normal Gastrointestinal: Normal Genitourinary Female: Normal Musculoskeletal: Normal Skin: Normal Neurological: Other (weakness, numbness) Endocrine: Normal Hemo/Lymphatic: Normal Psychiatric: Normal Physical Exam Vital Signs Temp Pulse Resp BP Pulse Ox 10/14/17 13:15 98 F 77 16 108/72 98 10/14/17 12:20 72 18 119/75 99 10/14/17 11:30 70 16 117/85 99 10/14/17 10:30 66 16 123/67 98 10/14/17 09:00 62 16 121/77 98 10/14/17 08:09 98.3 F 66 16 126/81 100 10/14/17 07:08 60 16 120/80 100 10/14/17 06:33 70 14 120/80 98 10/14/17 06:17 98.8 F 75 18 127/64 99 Temperature: Afebrile Blood Pressure: Normal Pulse: Regular Respiratory Rate: Normal Appearance: Positive for: Well-Appearing, Non-Toxic, Comfortable Pain Distress: None Mental Status: Positive for: Alert and Oriented X 3 - Systems Exam Head: Present: Atraumatic, Normocephalic Pupils: Present: PERRL Extroacular Muscles: Present: EOMI Conjunctiva: Present: Normal Mouth: Present: Moist Mucous Membranes Neck: Present: Normal Range of Motion Respiratory/Chest: Present: Clear to Auscultation, Good Air Exchange. No: Respiratory Distress, Accessory Muscle Use Cardiovascular: Present: Regular Rate and Rhythm, Normal S1, S2. No: Murmurs Abdomen: Present: Normal Bowel Sounds. No: Tenderness, Distention, Peritoneal Signs Back: Present: Normal Inspection Upper Extremity: Present: Normal Inspection. No: Cyanosis, Edema Lower Extremity: Present: Normal Inspection. No: Edema Neurological: Present: GCS=15, CN II-XII Intact, Speech Normal, Motor Func Grossly Intact, Normal Sensory Function, Normal Cerebellar Funct, Gait Normal, Memory Normal Skin: Present: Warm, Dry, Normal Color. No: Rashes Psychiatric: Present: Alert, Oriented x 3, Normal Insight, Normal Concentration Medical Decision Making ED Course and Treatment: 10/14/17 06:39 r/o cva- labs imaging pending case discussed with dr allison not tpa candidate low nih resolved symptoms. asa given. discussed with dr parsons, accepts 10/14/17 06:52 ekg nsr 62 non specific sttave change normal intervals - Lab Interpretations Lab Results: 10/14/17 06:28 10/14/17 06:28 Lab Results 10/14/17 08:27: Triglycerides 86, Cholesterol 179, LDL Cholesterol Direct 85, HDL Cholesterol 61 H, Vitamin B12 270, Folate 13.9 10/14/17 08:27: Iron 42 L, TIBC 288, % Saturation 15 L 10/14/17 06:28: Hemoglobin A1c 5.1 10/14/17 06:28: Sodium 142, Potassium 3.3 L, Chloride 104, Carbon Dioxide 27, Anion Gap 14, BUN 11, Creatinine 0.8, Est GFR ( Amer) > 60, Est GFR (Non- Af Amer) > 60, Random Glucose 119 H, Calcium 9.5, Total Bilirubin 0.9, AST 25, ALT 28, Alkaline Phosphatase 64, Troponin I < 0.01, Total Protein 8.1, Albumin 4.2, Globulin 3.8, Albumin/Globulin Ratio 1.1, Triglycerides 86, Cholesterol 178 , LDL Cholesterol Direct 92, HDL Cholesterol 64 H 10/14/17 06:28: PT 13.8 H, INR 1.25 H, APTT 30.3 10/14/17 06:28: WBC 10.5, RBC 4.29, Hgb 12.4, Hct 39.4, MCV 91.8, MCH 28.9, MCHC 31.5, RDW 13.6, Plt Count 641 H, MPV 9.4, Gran % 62.0, Lymph % (Auto) 30.0 , [place] % (Auto) 7.4 H, Eos % (Auto) 0.5 L, Baso % (Auto) 0.1, Gran # 6.50, Lymph # 3.1, [place] # 0.8 H, Eos # 0.1, Baso # 0.01 10/14/17 06:27: POC Glucose (mg/dL) 115 H 10/14/17 06:25: Blood Type O POSITIVE, Antibody Screen Negative, BBK History Checked Patient has bt - RAD Interpretation Radiology Orders: 10/14/17 06:10 HEAD W/O (CODE STROKE) [CT] Stat CHEST PORTABLE [RAD] Stat 10/14/17 08:29 BRAIN WITHOUT CONTRAST [MRI] Routine 10/14/17 08:31 CAROTID & VERTEBRAL DUPLEX [US] Routine - Medication Orders Current Medication Orders: Aspirin (Aspirin) 325 mg PO DAILY [facility] Last Admin: 10/15/17 09:18 Dose: 325 mg Atorvastatin Calcium (Lipitor) 10 mg PO DIN [facility] Last Admin: 10/15/17 17:44 Dose: 10 mg Enoxaparin Sodium (Lovenox) 70 mg SC Q12 [facility] Last Admin: 10/15/17 22:51 Dose: 70 mg Subcutaneous Administrations Document 10/15/17 22:51 [email or web address] (Rec: 10/15/17 22:51 [id number]) Injection Site MAR Injection Site Left Abdomen Charges for Administration # of Subcutaneous Administrations 1 Famotidine (Pepcid) 40 mg PO HS [facility] Last Admin: 10/15/17 22:51 Dose: 40 mg Levothyroxine Sodium (Synthroid) 75 mcg PO 0600 [facility] Last Admin: 10/16/17 06:12 Dose: 75 mcg Discontinued Medications Alprazolam (Xanax) 0.25 mg PO DAILY [facility] PRN Reason: Protocol Stop: 10/21/17 10:01 Last Admin: 10/14/17 10:39 Dose: Not Given Non-Admin Reason: Patient Refused Aspirin (Aspirin) 325 mg PO STAT STA Stop: 10/14/17 06:38 Last Admin: 10/14/17 06:55 Dose: 325 mg Aspirin (Ecotrin) 81 mg PO DAILY [facility] Last Admin: 10/14/17 10:39 Dose: Levothyroxine Sodium (Synthroid) 50 mcg PO 0600 [facility] Levothyroxine Sodium (Synthroid) 75 mcg PO 0600 [facility] Potassium Chloride (K-Dur 20 Meq Er Tab) 40 meq PO STAT STA Stop: 10/14/17 07:00 Last Admin: 10/14/17 07:18 Dose: 40 meq NIHSS Scale (Post) Time Performed: 06:15 - How Severe is the Stoke Baseline Level of Consciousness: 0=Alert LOC to Questions: 0=Both comments correct LOC to commands: 0=Obeys both correctly Best Gaze: 0=Normal Visual: 0=No visual loss Facial: 0=Normal Motor Arm - Left: 0=No drift Motor Arm - Right: 0=No drift Motor Leg - Left: 0=No drift Motor Leg - Right: 0=No drift Limb Ataxia: 0=Absent Sensory: 0=Normal Best Language: 0=No aphasia Dysarthia: 0=Normal articulation Extinction & Inattention (Neglect): 0=Normal, no object Score: 0 Risk Level: No Stroke Risk rTPA Inclusion/Exclusion - Refusal of Treatment Patient Refused Treatment: No - Inclusion Criteria for Altepase Patient is 18 years or Older: Yes The Clinical Diagnosis of Ischemic Stroke That is Causing a Potentially Disabling Neurological Deficit: No Time of Onset is Well Established to be Less Than 270 Minute Before Treatment Would Begin: Yes Risk/Benefit Discussed With Patient/Family Member Present: Yes Disposition/Present on Arrival - Present on Arrival Any Indicators Present on Arrival: No History of DVT/PE: No History of Uncontrolled Diabetes: No Urinary Catheter: No History Surgical Site Infection Following: None - Disposition Have Diagnosis and Disposition been Completed?: Yes Diagnosis: CVA (cerebral vascular accident) Disposition: HOSPITALIZED Disposition Time: 07:00 Patient Problems: Current Active Problems Problem Status Onset CVA (cerebral vascular accident) Acute Hyperlipemia Acute Hypokalemia Acute Iron deficiency Acute Thrombophilia Acute Condition: FAIR
[2017-10-14 06:18] VITALS: BMI 28.5
--- NOTE | 2017-10-14 06:37 | CT ---
EXAM: CT Head Without Intravenous Contrast CLINICAL HISTORY: 52 years old, female; Signs and symptoms; Numbness / parasthesia; Additional info: Code stroke TECHNIQUE: Axial computed tomography images of the head/brain without intravenous contrast. All CT scans at this facility use one or more dose reduction techniques, viz.: automated exposure control; ma/kV adjustment per patient size (including targeted exams where dose is matched to indication; i.e. head); or iterative reconstruction technique. 139 images are submitted. COMPARISON: CT - HEAD W/O CONTRAST 2017-05-07 21:13 FINDINGS: Brain: Mild cerebral and cerebellar volume loss. Minimal patchy hypodensity is seen in the periventricular cerebral white matter. No hemorrhage. Ventricles: Unremarkable. No ventriculomegaly. Bones/joints: Unremarkable. No acute fracture. Soft tissues: Unremarkable. Sinuses: Unremarkable. No acute sinusitis. Mastoid air cells: Unremarkable. No mastoid effusion. Orbits: The globe and lens are intact. IMPRESSION: No evidence of an acute intracranial hemorrhage, midline shift or mass effect is identified.Changes of an acute infarct may not be visible on CT for up to 24 to 48 hours. If this is of clinical concern, a follow up examination and/or MRI may be of benefit.
[2017-10-14 06:41] LABS: BASO # 0.01 K/mm3 (0.0-2.0); BASO % 0.1 % (0.0-3.0); EOS # 0.1 (0.0-0.7); EOS % 0.5 % (1.5-5.0); GRAN # 6.5 (1.4-6.5); HEMOGLOBIN 12.4 g/dL (12.0-16.0); LYMPH # 3.1 (1.2-3.4); MEAN CELL VOLUME 91.8 fl (80.0-105.0); MEAN CORPUSCULAR HEMOGLOBIN 28.9 pg (25.0-35.0); MEAN CORPUSCULAR HGB CONC 31.5 g/dl (31.0-37.0); MEAN PLATELET VOLUME 9.4 fl (7.0-11.0); MONO # 0.8 (0.1-0.6); MONO % 7.4 % (1.0-6.0); RBC 4.29 10^6/uL (3.5-6.1); RED CELL DISTRIBUTION WIDTH 13.6 % (11.5-14.5); WHITE BLOOD COUNT 10.5 10^3/ul (4.5-11.0)
[2017-10-14 06:58] LABS: ALB/GLOB RATIO 1.1 (1.1-1.8); ALBUMIN 4.2 g/dL (3.0-4.8); ALT/SGPT 28 U/L (7-56); AST/SGOT 25 U/L (14-36); BLOOD UREA NITROGEN 11 mg/dL (7-21); CALCIUM 9.5 mg/dL (8.4-10.5); GFR AFRICAN-AMERICAN > 60; GFR NON-AFRICAN AMERICAN > 60; HDL CHOLESTEROL 64 mg/dL (29-60)
[2017-10-14] MEDS ORDERED: Potassium Chloride 20 mEq ER Tab PO STA (06:59)
[2017-10-14 07:09] LABS: LDL CHOLESTEROL 92 mg/dL (0-129)
[2017-10-14 07:11] LABS: INR 1.25 (0.93-1.08); PARTIAL THROMBOPLASTIN TIME 30.3 Seconds (25.1-36.5); PROTHROMBIN TIME 13.8 SECONDS (9.4-12.5)
[2017-10-14 07:14] LABS: TROPONIN I < 0.01 ng/mL
--- NOTE | 2017-10-14 09:45 | RAD ---
HISTORY: code stroke . Portable study 06:23 COMPARISON: 06/12/2017 FINDINGS: LUNGS: No active pulmonary disease. PLEURA: No significant pleural effusion identified, no pneumothorax apparent. CARDIOVASCULAR: No radiographic findings to suggest acute or significant cardiovascular disease. OSSEOUS STRUCTURES: No significant abnormalities. VISUALIZED UPPER ABDOMEN: Normal. OTHER FINDINGS: None. IMPRESSION: No active disease. No significant interval change compared to the prior examination(s).
[2017-10-14 09:48] LABS: IRON 42 ug/dL (45-180)
[2017-10-14 09:58] LABS: TOTAL IRON BINDING CAPACITY 288 ug/dL (265-497)
[2017-10-14 09:59] LABS: % IRON SATURATION 15 % (20-55)
--- NOTE | 2017-10-14 12:43 | MRI ---
PROCEDURE: MRI BRAIN WITHOUT CONTRAST HISTORY: TIA COMPARISON: Noncontrast head CT from 10/14/2017. TECHNIQUE: Multiplanar, multisequence MR images of the brain were obtained without intravenous contrast enhancement. FINDINGS: HEMORRHAGE: None DWI: There are small foci of restricted diffusion in the left border zone territory in the frontal and parietal lobes and in the right posterior border zone territory in the parietal lobe. There are also small foci of restricted diffusion in the left parieto-occipital watershed territory. BRAIN PARENCHYMA: There are mild chronic microangiopathic changes. There is no mass, mass effect or abnormal extra-axial fluid collection. The midline sagittal structures are normal. VENTRICLES: The ventricles are normal in size, shape and configuration. CRANIUM: There is normal bone marrow signal pattern. ORBITS: Grossly unremarkable. PARANASAL SINUSES/MASTOIDS: Predominantly clear. VASCULAR SYSTEM: There are normal signal voids in the larger intracranial arteries. OTHER FINDINGS: None. IMPRESSION: 1. Left ADALBERTO MCA and MCA GEODETIC ADVISOR watershed territory acute border zone infarctions. 2. Right MCA GEODETIC ADVISOR territory acute border zone infarctions. 3. Mild chronic microangiopathic changes.
[2017-10-14 12:51] LABS: URINE BILIRUBIN NEGATIVE (NEGATIVE); URINE BLOOD TRACE-INTACT (NEGATIVE); URINE GLUCOSE (UA) NEGATIVE (NEGATIVE); URINE LEUKOCYTE ESTERASE MODERATE Leu/uL (NEGATIVE); URINE NITRATE NEGATIVE (NEGATIVE); URINE PROTEIN NEGATIVE mg/dL (<30 mg/dL); URINE UROBILINOGEN 0.2 E.U./dL (<1 E.U./dL)
[2017-10-14 12:52] LABS: URINE APPEARANCE CLEAR (CLEAR); URINE COLOR YELLOW (YELLOW)
[2017-10-14 13:06] LABS: URINE AMORPHOUS SEDIMENT FEW; URINE BACTERIA MANY (NEG)
--- NOTE | 2017-10-14 13:06 | US ---
PROCEDURE: Bilateral carotid artery duplex ultrasound HISTORY: Carotid stenosis TIA PHYSICIAN(S): Damien Mcneil MD. TECHNIQUE: Duplex sonography and color-flow Doppler were used to evaluate the carotid bifurcations and limited segments of the vertebral arteries bilaterally. FINDINGS: There is mininal smooth hypoechoic plaque noted at the carotid bifurcations bilaterally. The peak systolic velocity in the proximal right internal carotid artery is 69 cm/sec. This corresponds to a 0-19 percent proximal right ICA stenosis. Normal systolic velocities are noted in the proximal right external carotid artery. There is antegrade flow in the right vertebral artery. There is free-floating adherent thrombus noted at the left ICA origin. The peak systolic velocity in the proximal left internal carotid artery is 104 cm/sec. This corresponds to a 20 to 39% proximal left ICA stenosis. Normal systolic velocities are noted in the proximal left external carotid artery. There is antegrade flow in the left vertebral artery. IMPRESSION: 1. Free-floating partially occlusive thrombus at the left ICA origin. This may be cardieombolic in origin. 2. 0-19 percent proximal right ICA stenosis 3. Antegrade flow in both vertebral arteries.
[2017-10-14] MEDS ORDERED: Gadodiamide 287 MG/ML VIAL (15ML) IV ONE (16:00)
--- NOTE | 2017-10-14 16:59 | MRI ---
PROCEDURE: Magnetic Resonance Angiography Brain HISTORY: stroke COMPARISON: None available. TECHNIQUE: 3D time of flight MR angiography of the intracranial arteries was performed. Rotating maximum intensity projection images were generated. FINDINGS: INTERNAL CAROTID ARTERIES: Normal flow related signal. The skull base, petrous, cavernous and supraclinoid segments are bilaterally widely patient. ANTERIOR CEREBRAL ARTERIES: Normal flow related signal. The right A1 segment is hypoplastic, an anatomic variant. A1 and A2 segments are widely patent. Smaller distal branches unremarkable, as visualized. MIDDLE CEREBRAL ARTERIES: Normal flow related signal.M1 and M2 segments are widely patent. Perisylvian branches grossly symmetric. POSTERIOR CIRCULATION: Basilar Artery: Normal in caliber. Distal Vertebral Arteries: Normal in caliber. Posterior Cerebral Arteries: Normal in caliber. Posterior Inferior Cerebellar Arteries: Normal in caliber. ANEURYSM/ VASCULAR MALFORMATIONS: None. OTHER FINDINGS: None. IMPRESSION: Normal MR angiography of the brain.
--- NOTE | 2017-10-14 17:24 | CARD ---
APPROVED REPORT EKG Measurement Heart [id number] <Conclusion> Normal sinus rhythm Nonspecific T wave abnormality Abnormal ECG
[2017-10-14 17:46] LABS: FOLATE 13.9 ng/mL
[2017-10-14] MEDS: Enoxaparin 80 mg Syringe SC SCH (21:47)
--- NOTE | 2017-10-14 21:55 | CP.PCM.HP ---
<Angela Fan - Last Filed: 10/15/17 02:09> History of Present Illness - History of Present Illness History of Present Illness: 52 yr female w/ history of CVA, and hyperlipidemia [place] [facility] [place] in her R arm, She reports, "I just kept dropping things." Her daughter was at bedside and kept stating that her mother was noncompliant with her medications. Patient denies any headaches, SOB, N/V, fevers, constipation, diarrhea, urinary changes or distress. Present on Admission - Present on Admission Any Indicators Present on Admission: Yes History of DVT/PE: No History of Uncontrolled Diabetes: No Urinary Catheter: No Decubitus Ulcer Present: No Review of Systems - Constitutional Constitutional: As Per HPI - EENT Eyes: As Per HPI - Breasts Breasts: As Per HPI - Cardiovascular Cardiovascular: As Per HPI - Respiratory Respiratory: As Per HPI - Gastrointestinal Gastrointestinal: As Per HPI - Genitourinary Genitourinary: As Per HPI - Reproductive: Female Reproductive:Female: As Per HPI - Musculoskeletal Musculoskeletal: As Per HPI - Integumentary Integumentary: As Per HPI - Neurological Neurological: Abnormal Movements, Focal Weakness, Weakness - Psychiatric Psychiatric: As Per HPI - Endocrine Endocrine: As Per HPI - Hematologic/Lymphatic Hematologic: As Per HPI Past Patient History - Infectious Disease Hx of Infectious Diseases: None - Past Medical History & Family History Past Family History: Reviewed and not pertinent - Past Social History Smoking Status: Never Smoked - CARDIAC Hx Cardiac Disorders: No - PULMONARY Hx Respiratory Disorders: No - NEUROLOGICAL HX Cerebrovascular Accident: Yes - HEENT Hx HEENT Problems: No - RENAL Hx Chronic Kidney Disease: No - ENDOCRINE/METABOLIC Hx Endocrine Disorders: No - HEMATOLOGICAL/ONCOLOGICAL Hx Blood Disorders: No - INTEGUMENTARY Hx Dermatological Problems: No - MUSCULOSKELETAL/RHEUMATOLOGICAL Hx Musculoskeletal Disorders: No Hx Falls: No - GASTROINTESTINAL Hx Gastrointestinal Disorders: No - GENITOURINARY/GYNECOLOGICAL Hx Genitourinary Disorders: No - PSYCHIATRIC Hx Psychophysiologic Disorder: No - SURGICAL HISTORY Hx Surgeries: No - ANESTHESIA Hx Anesthesia: No Meds Allergies/Adverse Reactions: Allergies Allergy/AdvReac Type Severity Reaction Status Date / Time No Known Allergies Allergy Verified 10/14/17 06:18 Physical Exam - Constitutional Appears: Well - Head Exam Head Exam: ATRAUMATIC, NORMAL INSPECTION, NORMOCEPHALIC - Eye Exam Eye Exam: EOMI, Normal appearance, PERRL - ENT Exam ENT Exam: Mucous Membranes Moist, Normal Exam - Neck Exam Neck exam: Positive for: Normal Inspection - Respiratory Exam Respiratory Exam: Clear to Auscultation Bilateral, NORMAL BREATHING PATTERN - Cardiovascular Exam Cardiovascular Exam: REGULAR RHYTHM, +S1, +S2 - GI/Abdominal Exam GI & Abdominal Exam: Normal Bowel Sounds, Soft. absent: Tenderness - Extremities Exam Extremities exam: Positive for: normal inspection - Back Exam Back exam: NORMAL INSPECTION - Neurological Exam Neurological exam: Alert, CN II-XII Intact, Normal Gait, Oriented x3, Reflexes Normal - Psychiatric Exam Psychiatric exam: Normal Affect, Normal Mood - Skin Skin Exam: Dry, Intact, Normal Color, Warm Results - Vital Signs Recent Vital Signs: Last Vital Signs Temp 99 F 10/14/17 16:00 Pulse 64 10/14/17 16:00 Resp 18 10/14/17 16:00 BP 116/68 10/14/17 16:00 Pulse Ox 99 10/14/17 16:00 - Labs Result Diagrams: 10/14/17 06:28 10/14/17 06:28 Labs: Laboratory Results - last 24 hr 10/14/17 10/14/17 10/14/17 08:27 08:27 12:40 Iron 42 L TIBC 288 % Saturation 15 L Triglycerides 86 Cholesterol 179 LDL Cholesterol Direct 85 HDL Cholesterol 61 H Vitamin B12 270 Folate 13.9 Urine Color Yellow Urine Appearance Clear Urine pH 6.0 Ur Specific [place] 1.020 Urine Protein Negative Urine Glucose (UA) Negative Urine Ketones Trace H Urine Blood Trace-intact H Urine Nitrate Negative Urine Bilirubin Negative Urine Urobilinogen 0.2 Ur Leukocyte Esterase Moderate H Urine RBC 1 - 3 Urine WBC 10 - 15 Ur Epithelial Cells 6 - 8 Amorphous Sediment Few Urine Bacteria Many Assessment & Plan (1) CVA (cerebral vascular accident) Status: Acute (2) Hyperlipemia Status: Acute (3) Thrombophilia Status: Acute (4) Hypokalemia Status: Acute (5) Iron deficiency Status: Acute - Assessment and Plan (Free Text) Plan: Patient inpatient on Telemetry or Med/Surg. GI prophlyaxis, VTE prophlyaxis, Falls precautions, Bleeding precautions. Consulted: Neuro = Dr. Alilson - ordered ECHO Cardio = Dr. Wallace - Reviewed: Head MRA = WNL Carotid US = (+)free floating partially occlusive thrombus L ICA (cardioembolic) , 0-19% R ICA stenosis MRI of Brain = (+) L ADALBERTO, MCA, & MCS, FACSIMILE OPERATOR watershed territory acute border zone infarctions, R MCA, FACSIMILE OPERATOR territory acute border zone infarctions, mild chronic microangiopathic changes CT of Head = (-) WNL CXR = WNL ECG = ABNORMAL NSR, nonspecific T wave abnormality - Date & Time Date: 10/14/17 Time: 10:10 <Breann Singh - Last Filed: 10/15/17 17:53> Results - Vital Signs Recent Vital Signs: Last Vital Signs Temp 97.8 F 10/15/17 16:00 Pulse 87 10/15/17 16:00 Resp 20 10/15/17 16:00 BP 124/66 10/15/17 16:00 Pulse Ox 98 10/15/17 16:00 - Labs Result Diagrams: 10/15/17 06:50 10/15/17 06:50 Labs: Laboratory Results - last 24 hr 10/15/17 10/15/17 10/15/17 06:50 06:50 06:50 WBC 10.3 RBC 4.49 Hgb 13.0 Hct 41.5 MCV 92.4 MCH 29.0 MCHC 31.3 RDW 13.7 Plt Count 627 H MPV 9.7 Sodium 142 Potassium 3.8 Chloride 104 Carbon Dioxide 27 Anion Gap 14 BUN 11 Creatinine 0.8 Est GFR ( Amer) > 60 Est GFR (Non-Af Amer) > 60 Random Glucose 101 Calcium 9.2 TSH 3rd Generation 29.30 H Assessment & Plan - Assessment and Plan (Free Text) Plan: pt is seen and examined at bed side , had b/l stroke , d/d with dr allison . neuro . and radiologist , pt ordered , cardio and neuro is on the case , agreed all above , will f/u
[2017-10-15] MEDS ORDERED: Levothyroxine 50 MCG TAB PO SCH ×2 (06:00→21:23)
[2017-10-15 07:22] LABS: MEAN CELL VOLUME 92.4 fl (80.0-105.0); MEAN CORPUSCULAR HGB CONC 31.3 g/dl (31.0-37.0); MEAN PLATELET VOLUME 9.7 fl (7.0-11.0); RBC 4.49 10^6/uL (3.5-6.1); RED CELL DISTRIBUTION WIDTH 13.7 % (11.5-14.5); WHITE BLOOD COUNT 10.3 10^3/ul (4.5-11.0)
[2017-10-15 08:00] LABS: BLOOD UREA NITROGEN 11 mg/dL (7-21); CALCIUM 9.2 mg/dL (8.4-10.5); GFR AFRICAN-AMERICAN > 60; GFR NON-AFRICAN AMERICAN > 60
--- NOTE | 2017-10-15 08:31 | CON ---
DATE: 10/14/2017 CHIEF COMPLAINT: Right-sided heaviness, weakness. HISTORY OF PRESENT ILLNESS: This is a 52-year-old woman with a history of TIA symptoms in the past, hyperlipidemia, who presented to the hospital with right sided heaviness and weakness as well as right arm numbness. We started prior to arrival in the ER, that her symptoms started to improve. She underwent an MRI of the brain, which showed left ADALBERTO/MCA and MCA/PATIENT SAFETY ATTENDANT watershed territory acute zone infarctions and a right MCA/PATIENT SAFETY ATTENDANT territory acute border zone infarctions and in addition, she has positive carotid Doppler showing a few partially occlusive thrombus at that left IC origin, which represent cardioembolic in origin and 0 to 19% in the proximal right ICA stenosis. I started her on aspirin. I started her on therapeutic Lovenox given the free-floating thrombus and will need a cardiology consult. She is currently nonfocal with a very minimal right sided reduced finger tap on the right when compared to the left. PAST MEDICAL HISTORY: Hyperlipidemia, history of TIA symptoms in the past. SOCIAL HISTORY: No illicit drug use, smoking, or EtOH abuse at this time. ALLERGIES: NO KNOWN DRUG ALLERGIES. MEDICATIONS: Reviewed by nursing reconciliation sheet. FAMILY HISTORY: Noncontributory. REVIEW OF SYSTEMS: A 14-point review of systems is negative except as per the HPI. PHYSICAL EXAMINATION VITAL SIGNS: Temperature 99, pulse rate 64, blood pressure 116/68, respiratory rate 18, oxygen saturation 99% via room air. GENERAL: Patient is sitting up in bed, in no acute distress. HEENT: Head is atraumatic and normocephalic. PERRLA. Extraocular muscles are intact. NECK: Supple. No JVD. No adenopathy noted. LUNGS: Clear to auscultation. No adventitious sounds. HEART: S1 and S2. Normal rate and rhythm. No murmurs, rubs or gallops. ABDOMEN: Soft, nontender and nondistended. Bowel sounds are present. EXTREMITIES: No clubbing. No cyanosis. Peripheral pulses are 2+ felt bilaterally. NEUROLOGIC: The patient is alert and oriented to person, place, month, and year. Speech is fluent without any errors. Cranial nerves II through XII are intact. Motor exam, very minimal right-sided pronator drift, otherwise reduced right finger tap compared to the left. Toes are upgoing bilaterally. Sensory examination is intact to light touch, pinprick, proprioception. Vibration intact. DTRs are 2+ throughout. Coordination of [id number] intact. Gait is deferred for now. LABORATORY DATA: Sodium is 142, potassium of 3.3, chloride of 104, carbon dioxide of 27, BUN of 11, creatinine of 0.8, random glucose of 119, iron is 42 with a percent saturation of 15, B12 is currently pending. ASSESSMENT AND PLAN: This is a 52-year-old woman with a history of transient ischemic attack in the past, family history of dyslipidemia who presented with right arm heaviness and right leg heaviness, in addition numbness of the right arm. Symptoms have improved. Given that she has low given. MRI of the brain showed a left anterior cerebral artery/middle cerebral artery and middle cerebral artery/posterior cerebral artery watershed territory acute border zone infarctions and a right middle cerebral artery/posterior cerebral artery territory acute zone infarctions with positive carotid Doppler free-floating thrombus seen at the left internal carotid artery origin may be cardioembolic in origin. Given her infarctions bilaterally, seems more of a cardioembolic in nature versus patent foramen ovale. We will recommend: 1. Aspirin 81 mg and therapeutic Lovenox which is a total dose of 70 mg subcu given that she has a free-floating thrombus to prevent any further strokes. 2. We will get hypercoagulable workup and will recommend hematology consult given also she has iron deficiency anemia. 3. Recommend echocardiogram. 4. Monitor electrolytes . 5. MRA of the neck. 6. PT/OT evaluation and continue current present medical management. Maxime Jauregui MD
--- NOTE | 2017-10-15 08:58 | CON ---
DATE: 10/14/2017 LOCATION: The patient is in room 370, bed 1. REASON FOR CONSULTATION: Shaking, numbness and weakness of the right arm. HISTORY OF PRESENT ILLNESS: The patient is a 52-year-old female. She states that all of a sudden she felt her right arm was shaking and following that right arm strength was decreasing and she could not hold anything and now the strength is coming back and is almost back to close to normal. The patient states that similar thing happened in 04/2017. The difference is in 04/2017, the shaking was more and weakness was less, but at this time, shaking was less, but weakness was more. She denies any chest pain or shortness of breath or palpitation associated with these episodes. On the last admission, she was told to have thrombocytosis. The patient also known to have hypercholesteremia. The patient at home was taking atorvastatin 10 mg daily, she was supposed to take Ecotrin 81 mg daily, but the patient was not taking it. PAST MEDICAL HISTORY: Positive for TIA in 04/2017, thrombocytosis, and hyperlipidemia. PERSONAL HISTORY: Denies smoking. Denies drinking. FAMILY HISTORY: Mother at age 74 with [place]. MEDICATIONS AT HOME: The patient was taking atorvastatin 10 mg daily, she was supposed to take Ecotrin 81 mg daily, but she was not taking it. REVIEW OF SYSTEMS: All the systems reviewed positive as mentioned in history, otherwise negative. PHYSICAL EXAMINATION: VITAL SIGNS: Blood pressure 116/68, respirations 18, pulse 64, and temperature 99. HEENT: Head is normocephalic. Pupils normal. Conjunctivae normal. Nose and throat normal. NECK: JVP low. Carotids equal. THORAX: AP diameter normal. LUNGS: Clear. CARDIOVASCULAR: S1 and S2. ABDOMEN: Soft and nontender. No organomegaly. Bowel sounds normal. EXTREMITIES: No clubbing. No cyanosis. CENTRAL NERVOUS SYSTEM: The patient able to move all arms and legs and motor movements of the arms seem to be normal at present. LABORATORY DATA: WBC 10.5, hemoglobin 12.4, hematocrit 39.4, and platelet count 641. Sodium 142, potassium 3.3, BUN 11, and creatinine 0.8. AST and ALT normal. Troponin less than 0.01. Cholesterol 179, HDL 61, LDL 85, and triglyceride 86. EKG showed regular sinus rhythm, nonspecific ST-T changes. CAT scan showed no evidence of acute intracranial hemorrhage. Carotid artery ultrasound showed free floating partially occlusive thrombus in the left internal carotid artery origin proximal right ICA stenosis, and antegrade flow in both vertebral arteries. Echocardiogram; the patient had echocardiogram in 04/2017, which showed normal LV function, mild tricuspid regurgitation, and mild pulmonary regurgitation. Following that echo next day, the patient had bubble study and there was no evidence of PFO. Bubble study was negative. The patient having brain MRI and had MRA. DIAGNOSES: Transient ischemic attack type of symptoms affecting the same right arm, which was also involved in 04/2017 with similar symptoms, thrombocytosis, thrombus at the origin of left internal carotid artery, and hyperlipidemia. PLAN: The patient is already receiving aspirin 325 mg p.o. daily and potassium supplement has been already given. We will repeat labs in the morning, atorvastatin 10 mg daily, Lovenox 70 mg subcutaneously q.12 hours, and Pepcid 40 mg at bedtime. A repeat echo has been again ordered. We will follow the repeat echo. In the meantime, continue aspirin and Lovenox as ordered along with atorvastatin. We will follow the echo, which has been ordered and we will follow with you. Homero Patrick MD
[2017-10-15] MEDS: Enoxaparin 80 mg Syringe SC SCH ×2 (09:18→22:51)
--- NOTE | 2017-10-15 13:21 | PN ---
DATE: 10/15/2017 LOCATION: The patient is in room number 370, bed 1. REASON FOR CONSULTATION AND FOLLOWUP: Shaking, numbness and weakness of the right arm. SUBJECTIVE: The patient is conscious, alert, and moving all extremities. Denies any chest pain, shortness of breath, or palpitation. PHYSICAL EXAMINATION: VITAL SIGNS: Blood pressure of 112/73, respirations of 18, pulse of 59, and temperature of 98.3. HEENT: Head is normocephalic. Eyes: Pupils are normal. Conjunctivae are normal. Nose and throat are normal. NECK: JVP low. Carotids are equal. THORAX: AP diameter normal. LUNGS: Clear. CARDIOVASCULAR: S1 and S2. ABDOMEN: Soft. No tenderness. No organomegaly. Bowel sounds are normal. EXTREMITIES: No clubbing and no cyanosis. LABORATORY DATA: WBC of 10.3, hemoglobin of 13.0, hematocrit of 41.5, and platelets of 627. Sodium of 142, potassium of 3.8, BUN of 11, and creatinine of 0.8. TSH of 29.30. Cholesterol of 179, LDL of 85, HDL of 61, and triglycerides of 86. DIAGNOSTIC DATA: MRI of the brain showed left ADALBERTO, MCA, SUPERVISOR PHOTOCOMPOSITION watershed territory acute border zone infarctions and a right MCA, SUPERVISOR PHOTOCOMPOSITION territory acute border zone infarctions. Carotid ultrasound showed free fluid impartially, occlusive thrombus at that left IC origin, 0 to 19% proximal right ICA stenosis. DIAGNOSES: The patient presented with the shaking of the right arm and then followed by weakness of the right arm and then she seem to be recovered from it, same thing happened in 04/2017, same arm, same way the patient had shaking and weakness which is completely recovered. Thrombocytosis, hypercholesteremia, and hypothyroidism. Multiple areas of infarct on her magnetic resonance imaging of brain suggestive of embolic phenomenon; however, at her carotid artery is suggestive of thrombus rather than embolic phenomenon because if it is embolic phenomenon it should have moved further forward instead of attacking at the left internal carotid artery region. PLAN: The patient is going to have echocardiogram today. In April, she did the echocardiogram which did not show any thrombus and then also she has bubble study in April, which did not show any PFO. The patient is already on aspirin 325 daily, Lovenox 70 mg subcutaneously q.12 hours, Lipitor 10 mg daily, and Pepcid 40 mg at bedtime. We will start her Synthroid 0.050 daily, then increased to 0.1 daily after few days. Echo will be done today and we will follow the report. We will follow. Homero Patrick MD
[2017-10-15] MEDS ORDERED: Gadodiamide 287 MG/ML VIAL (20ML) IV ONE (13:47)
--- NOTE | 2017-10-15 15:27 | MRI ---
PROCEDURE: MR Angiography of the neck with and without contrast HISTORY: stroke COMPARISON: None available. TECHNIQUE: Contrast enhanced and [id number] angiography of the neck was performed. Rotating 3D maximum intensity projection images of the cervical carotid and vertebral arteries were generated. 20 cc of Omniscan FINDINGS: RIGHT CAROTID ARTERIES: Common Carotid Artery: Normal. Carotid Bifurcation: Normal. Internal Carotid Artery:Normal. External Carotid Artery (proximal branches): Normal. LEFT CAROTID ARTERIES: Common Carotid Artery: Normal. Carotid Bifurcation: Normal. Internal Carotid Artery:Normal. External Carotid Artery (proximal branches): Normal. VERTEBRAL ARTERIES: Right Vertebral Artery: Tortuosity of the vertebral arteries without stenosis Left Vertebral Artery: As above OTHER FINDINGS: None. IMPRESSION: No evidence of carotid stenosis. Vertebral tortuosity without stenosis or occlusion
--- NOTE | 2017-10-15 16:32 | CARD ---
APPROVED REPORT EXAM: Two-dimensional and M-mode echocardiogram with Doppler and color Doppler. INDICATION CVA/TIA 2D DIMENSIONS Left Atrium (2D)3.8 (1.6-4.0cm)IVSd1.0 (0.7-1.1cm) LVDd4.2 (3.9-5.9cm)PWd1.0 (0.7-1.1cm) LVDs3.1 (2.5-4.0cm)FS (%) 25.6 % LVEF (%)50.8 (>50%) M-Mode DIMENSIONS Aortic Root2.70 (2.2-3.7cm)Aortic Cusp Exc.1.70 (1.5-2.0cm) Aortic Valve AoV Peak Cimhrlvc689.0cm/Rolo Peak GR.10mmHg Mitral Valve MV E Tdhjcxyj89.8cm/sMV A Wlainmze71.4cm/sE/A ratio0.7 TDI E/Lateral E'0.0E/Medial E'0.0 Tricuspid Valve TR Peak Tfkbyznm240mq/sRAP [id number] Peak Gr.17mmHg [id number] LEFT VENTRICLE The left ventricle is normal size. There is mild concentric left ventricular hypertrophy. Left ventricle systolic function is borderline. There is normal LV segmental wall motion. Transmitral Doppler flow pattern is Grade I-abnormal relaxation pattern. RIGHT VENTRICLE The right ventricle is normal size. There is normal right ventricular wall thickness. The right ventricular systolic function is normal. ATRIA The left atrium size is normal. The right atrium size is normal. AORTIC VALVE The aortic valve is mildly thickened. No aortic regurgitation is present. There is no aortic valvular stenosis. MITRAL VALVE The mitral valve is mildly thickened. There is no mitral valve regurgitation noted. TRICUSPID VALVE There is no pulmonary hypertension. GREAT VESSELS The aortic root is normal in size. The IVC is normal in size and collapses >50% with inspiration. PERICARDIAL EFFUSION There is a trace loculated anterior pericardial effusion. <Conclusion> The left ventricle is normal size. There is mild concentric left ventricular hypertrophy. Left ventricle systolic function is borderline. There is normal LV segmental wall motion. Transmitral Doppler flow pattern is Grade I-abnormal relaxation pattern.
--- NOTE | 2017-10-15 18:39 | PN ---
DATE: 10/15/2017 NEUROLOGY FOLLOWUP CHIEF COMPLAINT: Followup for right-sided heaviness, status post embolic CVA. SUBJECTIVE: The patient is seen and examined at bedside. She no longer has any weakness. Her right upper extremity weakness is much better. Her neck MRI shows no evidence of carotid stenosis. Echocardiogram presently showed no PFO according to Cardiology. She is on therapeutic Lovenox, which we would recommend for her to be switched to Coumadin for an outpatient or Eliquis. It depends on what Cardiology feels. She does have an embolic pattern of strokes and hypercoagulable workup is currently is pending, which could be followed up as an outpatient. Her B12 is 270, which is on the lower side. PAST MEDICAL HISTORY: Hyperlipidemia and history of TIAs in the past. SOCIAL HISTORY: No illicit drug use, smoking or EtOH abuse. ALLERGIES: NO KNOWN DRUG ALLERGIES. MEDICATIONS: Reviewed by nurse per reconciliation sheet. FAMILY HISTORY: Noncontributory. REVIEW OF SYSTEMS: A 14-point of review of systems is negative as per the HPI. PHYSICAL EXAMINATION: VITAL SIGNS: Temperature 98.3, pulse rate of 75, blood pressure 112/73, respiratory rate 18, oxygen saturation 97% on room air. GENERAL: The patient is sitting up in bed in no acute distress. HEENT: Head is atraumatic and normocephalic. PERRLA. Extraocular muscles are intact. NECK: Supple. No JVD. No adenopathy noted. LUNGS: Clear to auscultation. No adventitious sounds. HEART: S1 and S2 normal. Regular rate and rhythm. No murmurs, rubs, or gallops. ABDOMEN: Soft, nontender and nondistended. Bowel sounds are present. EXTREMITIES: No clubbing. No cyanosis. Peripheral pulses are 2+ bilaterally. NEUROLOGIC: The patient is alert, oriented to person, place, month, and year. Speech is fluent without any errors. Cranial nerves II through XII are intact. Motor exam, moves all extremities equally, very minimal reduced right finger tapping when compared to the left. Toes are upgoing bilaterally. Sensory exam: Light touch, pinprick, proprioception, and vibration intact. DTRs are 2+ throughout. Coordination of [id number]-te-anhh intact. Gait is deferred for now. LABORATORY DATA: Neck MRI showed no evidence of carotid stenosis. Today; sodium is 142. potassium is 3.8, chloride 104, carbon dioxide 27, BUN of 11, creatinine 0.8, and random glucose of 101. ASSESSMENT AND PLAN: 1. This is a 52-year-old woman with history of transient ischemic attack in the past and history of dyslipidemia, who presented with right arm heaviness and right leg heaviness in addition to numbness of the right arm, which transiently improved, but her MRI of the brain showed left anterior cerebral artery/middle cerebral artery showed acute infarctions and right middle cerebral artery and posterior cerebral artery territory acute infarctions with a positive carotid Doppler with free flowing thrombus seen in the left internal carotid artery. Therefore, it was more of an origin of cardioembolic. Her neck MRI showed no significant carotid stenosis. Given her infarctions bilaterally, it seems more of cardioembolic. At this time, we recommend aspirin 81 in addition she has been on therapeutic Lovenox, total dose of 70. We recommend switching that to either Coumadin or Eliquis based on Cardiology's approval and recommendation. 2. Hypercoagulable workup has current been ordered and is pending. We will follow that up as an outpatient. 3. Recommend vitamin B12 injection given that her vitamin B12 is in the low normal level of 270. 4. Can follow up with me as an outpatient and continue with Cardiology followup. Thank you for this followup. Maxime Jauregui MD
[2017-10-15] MEDS ORDERED: Levothyroxine 75 MCG TAB PO SCH (21:30)
--- NOTE | 2017-10-16 08:29 | PN ---
DATE: 10/15/2017 SUBJECTIVE: The patient is a 52-year-old female. The patient is seen and examined at the bedside, looking comfortable,went for echocardiography. No nausea, vomiting or diarrhea. No hematuria or hematochezia. No headache or dizziness. No chest pain or palpitation. No fever and no chills. REVIEW OF SYSTEMS: A 14-point of review of system is negative except above. PHYSICAL EXAMINATION: VITAL SIGNS: Temperature of 98.6, pulse of 75, blood pressure of 112/73, respiratory rate of 18 and oxygen saturation is 97% on room air. HEENT: Head is normocephalic and atraumatic. Eyes; PERRLA. Extraocular muscles are intact. Conjunctivae clear. Nose patent. Mucous membranes are moist. NECK: Supple. No carotid bruit. No JVD or thyromegaly. CHEST: Bilaterally symmetrical. HEART: S1 and S2 positive. LUNGS: Clear to auscultation. ABDOMEN: Soft. Bowel sounds present. No organomegaly. EXTREMITIES: No edema. No cyanosis. NEUROLOGIC: The patient is awake and alert. Moving all four extremities. No focal deficits. LABORATORY DATA: White blood cells of 10.3, hemoglobin of 13.0, hematocrit of 41.5, and platelets of 627. Sodium of 142, potassium of 3.8, BUN of 11, and creatinine of 0.8. MEDICATIONS: Aspirin, Lipitor, Lovenox, Pepcid, and Synthroid. ASSESSMENT AND PLAN: Oleg Ruth with history of hypokalemia improved. She has hyperglycemia, iron deficiency, hypothyroidism, need adjustment of TSH, seeing by neurologist, Dr. Maxime Jauregui, came with history of transient ischemic attack, dyslipidemia, came with right arm heaviness and right leg heaviness in addition to numbness of the right arm which now improved, but MRI of the brain showed a left anterior cerebral artery and middle cerebral artery infarction, acute right middle cerebral artery and posterior cerebral artery territory acute infarction with a positive carotid Doppler with free floating thrombus has seen in the left internal carotid artery, therefore it was more of an origin of cardioembolism. Her neck magnetic resonance imaging showed no significant carotid stenosis. Given her infarction bilaterally, it seems more of cardioembolic phenomenon. The patient was given aspirin 81 mg and put on Lovenox. Neurologists are suggesting to starting Coumadin or Eliquis based on Cardiology approval recommendation. Hypercoagulable workup has currently been ordered and is pending. Recommending vitamin B12 injection given her B12 is in the lower level of 270. The patient went for echocardiogram, it showed left ventricular normal size. There is a mild concentric left ventricular hypertrophy, left ventricular systolic function is borderline. There is a normal left ventricular segmental wall motion. Transmural Doppler flow pattern is grade I, abnormal relaxation pattern. Seen by the Button Tufting Machine Operator, Dr. Patrick. In April, the patient did echocardiogram which did not show any thrombus then she has a bubble study in April which did not show any patent foramen ovale. The patient was on aspirin, but as per the patient's daughter, I met her, two weeks the patient was not taking aspirin. We will continue Lipitor, Pepcid, and we will increase the Synthroid dose. Gastrointestinal and deep vein thrombosis prophylaxis. Repeat labs. We will follow. Breann Singh MD 10/15/2017 ERIC
[2017-10-16] MEDS: Enoxaparin 80 mg Syringe SC SCH (09:03)
[2017-10-16] MEDS ORDERED: Potassium Chloride 20 mEq ER Tab PO ONE (11:36)
--- NOTE | 2017-10-16 14:57 | PN ---
DATE: 10/14/2017 REASON FOR CONSULTATION AND FOLLOWUP: Shaking and numbness and weakness of the right arm. SUBJECTIVE: The patient is alert, awake. Denies any chest pain, shortness of breath or palpitation. Denies any shaking. Denies any numbness of the right arm. OBJECTIVE: GENERAL: Not in apparent distress. Lying flat. Feels finger strength in both right and left arm. VITAL SIGNS: High temperature, afebrile, heart rate 72, and blood pressure 110/58. HEENT: PERRLA. Extraocular muscles intact. NECK: Supple. No carotid bruits or thyromegaly. CHEST: Clear to auscultation. HEART: S1 and S2 regular. ABDOMEN: Soft. EXTREMITIES: Clubbing and cyanosis negative. LABORATORY DATA: Blood workup as follows: WBC 15.0, hemoglobin 13, hematocrit 41.5, and platelet count 627. Chemistry shows sodium 142, potassium 3.0, chloride 104, carbon dioxide 27, anion gap of 14, BUN 11, and creatinine 0.8. Homocysteine 12.3. TSH 29.3. IMPRESSION: Severe hypothyroidism. MRI of the brain shows left internal carotid, middle cerebral artery, and posterior cerebral artery watershed territory, acute borderline infarct and right middle cerebral artery, posterior cerebral artery territory acute border zone infarction. Carotid ultrasound showed free fluid, occlusive thrombus of left internal carotid artery, 0% to 9% proximal internal carotid artery stenosis. The patient presented with a shaking of the hand and arm. It showed weakness of the right arm and then seems that he recovered it. Same thing happened on the previous admission dated 04/2017. History of thrombocytosis. History of hypercholesterolemia, hypothyroidism, multiple areas of the brain and magnetic MRI was suggestive of mild phenomenon; however, at the carotid artery suggestive of thrombus rather than embolus phenomenon. Because of the embolic phenomenon, he should have to move further instead of going on to his left carotid artery. The patient had a repeat echocardiography done yesterday that shows left ventricular hypertrophy, borderline systolic function, normal segmental wall motion abnormality. No mitral regurgitation. No significant tricuspid regurgitation noted. When compared from the previous echo, this echo and last echo did not show any thrombus nor patent foramen ovale. The patient is already on aspirin and Lovenox subcutaneously, Lipitor 10 mg, Pepcid, Synthroid. Suggested long-term anticoagulation. We will await for Neuro input, but if the patient is having breakthrough embolic phenomenon, I agree that we will start Eliquis 5 mg b.i.d. till the blood workup for hypercoagulable backup. We will follow with you. Thank you Dr. Singh for providing us the opportunity in taking care of the patient, Vickie Dejesus. We will discontinue Lovenox and discontinue aspirin. We will start Eliquis 5 mg b.i.d. Thank you Dr. Jauregui. Thank you Dr. Singh for providing us the opportunity in taking care of Vickie Dejesus in view of the multiple areas of infarct and no source of embolus is present. I strongly suggest we start 5 mg of Eliquis b.i.d. Homero Wallace MD
--- NOTE | 2017-10-16 18:22 | PN ---
DATE: 10/16/2017 NEUROLOGY FOLLOWUP CHIEF COMPLAINT: Followup for right-sided heaviness, status post embolic CVA. SUBJECTIVE: The patient is seen and examined at the bedside. She no longer has any weakness. She is now on Eliquis for stroke prevention since her strokes are more embolic in nature. Hypercoagulable workup is currently ongoing elevated homocysteine level which is consistent with atherosclerotic disease as well. Her B12 level was 270, which is on the lower side. PAST MEDICAL HISTORY: Hyperlipidemia and history of TIAs in the past. SOCIAL HISTORY: No illicit drug use, smoking, or EtOH abuse. ALLERGIES: NO KNOWN DRUG ALLERGIES. MEDICATIONS: Reviewed by nurse per reconciliation sheet. REVIEW OF SYSTEMS: A 14-point review of systems negative as mentioned in the HPI. PHYSICAL EXAMINATION: GENERAL: The patient is sitting up in bed, in no acute distress. VITAL SIGNS: Temperature 98.4, pulse rate of 80, blood pressure of 110/58, respiratory rate of 20, and oxygen saturation of 100% on room air. HEENT: Head is atraumatic and normocephalic. PERRLA. Extraocular muscles are intact. NECK: Supple. No JVD. No adenopathy noted. LUNGS: Clear to auscultation. No adventitious sounds. HEART: S1 and S2. Normal rate, normal rhythm. No murmurs, rubs, or gallops. ABDOMEN: Soft, nontender and nondistended. Bowel sounds are present. EXTREMITIES: No clubbing. No cyanosis. Peripheral pulses are 2+ bilaterally. NEUROLOGIC: The patient is alert, oriented to person, place, month, and year. Speech is fluent without any errors. Cranial nerves II through XII are intact. Motor exam, moves all extremities equally with very minimally reduced right finger tap when compared to left. Toes are upgoing bilaterally. Sensory exam: Light touch, pinprick, proprioception, and vibration intact. DTRs are 2+ throughout. Coordination: [id number] intact. Gait is deferred for now. LABORATORY DATA: No new labs done today. Elevated homocysteine of 12.3. ASSESSMENT AND PLAN: 1. This is a 52-year-old woman with past medical history of transient ischemic attack in the past and history of dyslipidemia, presented with right arm heaviness, right leg heaviness in addition to numbness of the right side of the face, where she had an MRI of the brain which showed left anterior cerebral artery and middle cerebral artery infarcts along with right middle cerebral artery and posterior cerebral artery territory acute infarcts with positive carotid Doppler, which was showing free flowing thrombus in the internal carotid and neck MRA showing no significant carotid artery stenosis. Given that her infarctions are bilateral and cardioembolic, at this point, we recommend aspirin 81 mg with Eliquis 2.5 mg p.o. b.i.d. from a neurologic perspective for stroke prevention. 2. Hypercoagulable workup ongoing. Follow up with electrophysiology scientist. 3. Once cleared by ID and Hematology, the patient can be discharged home and follow up with me in the office. At this time, thank you for this followup. Maxime Jauregui MD
--- NOTE | 2017-10-16 20:53 | CON ---
DATE: 10/16/2017 The patient seen in room 370. CHIEF COMPLAINT: Positive urine culture x1 day. HISTORY OF PRESENT ILLNESS: A 52-year-old female with a history of cerebrovascular accident and hyperlipidemia who was admitted with right-sided numbness and history of sinusitis. The patient was found to have a clot and Infectious Disease consultation requested that the patient because of positive urine culture for Gram-positive cocci. The patient denies any fevers, any chills, any chest pain. She denies any dysuria. She denies any frequency. No symptoms. No headaches or blurred vision. PAST MEDICAL HISTORY: Significant for cerebrovascular accident, hyperlipidemia and sinusitis. PAST SURGICAL HISTORY: Noncontributory. SOCIAL HISTORY: She did have a miscarriage at younger age. She has 2 children at this point. MEDICATIONS AT HOME: Reveals the patient is on Lipitor and aspirin. PHYSICAL EXAMINATION: GENERAL: The patient is in bed, no acute distress, nontoxic. VITAL SIGNS: Temperature of 98, blood pressure is 110/50, respiratory rate of 20 and heart rate of 56. HEENT: Unremarkable. NECK: Supple. LUNGS: Have decreased breath sounds. HEART: Normal S1 and S2. ABDOMEN: Soft and nontender. LABORATORY DATA: Reveals a white count of 10,000, hemoglobin of 12 and platelets of 641. Coagulation is noted. Chemistry reveals the BUN of 11 and creatinine 0.8. The patient had homocysteine level of 12.3. Urinalysis is noted. Urine cultures are Gram-positive cocci. ASSESSMENT AND PLAN: A 52-year-old female with cerebrovascular accident and hyperlipidemia with history of miscarriage in the past with Gram-positive cocci urinary tract infection 10,000 to 50,000 CFUs, asymptomatic. The patient with hypercoagulable state most rule out an antiphospholipid syndrome in a young female with lupus anticoagulant, antiphospholipid antibodies and antiphospholipid syndrome. We will order a antiphospholipid antibody panel, Lupus anticoagulant evaluation, lupus anticoagulant hexagonal studies. We will order blood cultures x2. I doubt endocarditis with embolic disease. We will order sedimentation rate and C-reactive protein. We will order HIV. The urine does not need to be treated. The patient is an asymptomatic low count urinary tract culture. We will follow closely with you. Case discussed with Dr. Maxime Jauregui. Henrry Biggs MD
--- NOTE | 2017-10-16 21:27 | CP.PCM.CON ---
History of Present Illness - History of Present Illness History of Present Illness: Vascular Surgery Progress note. Dr. Moore Consulted regarding L ICA thrombus. 52yo F with PMHx of TIAs, HLD, medication non-compliance here for evaluation of R arm weakness. She was admitted to the hospital on 10/14 and states that her Right sided weakness has improved markedly. She currently denies any complaints with her motor function. Still reports some mild paresthesias of the right upper extremity. Denies any headache. No N/V/D. No Abd pain. No F/C. No other complaints. She does report that she had similar symptoms in Oct 2016 which resolved and was recommended to take ASA and Lipitor and states that she has been non-compliant. Carotid US on 10/14 showed L ICA thrombus with 20-39% stenosis. Neck MRA unremarkable. Brain MRI with evidence of bilateral, multi-vessel ischemic stroke. Cardiac ECHO performed with evidence mild LVH and preserved EF. PMHx: TIA, HLD PSHx: Denies Social Hx: Denies Tobacco, Denies ETOH, Denies illicit drugs NKDA Review of Systems - Review of Systems All systems: reviewed and no additional remarkable complaints except - Constitutional Constitutional: absent: Headache - EENT Eyes: absent: Change in Vision Ears: absent: Decreased Hearing - Cardiovascular Cardiovascular: absent: Chest Pain, Dyspnea - Gastrointestinal Gastrointestinal: absent: Nausea, Vomiting - Musculoskeletal Musculoskeletal: absent: Abnormal Gait, Back Pain - Neurological Neurological: Numbness, Focal Weakness. absent: Headaches Past Patient History - Infectious Disease Hx of Infectious Diseases: None - Past Medical History & Family History Past Family History: Reviewed and not pertinent - Past Social History Smoking Status: Never Smoked - CARDIAC Hx Cardiac Disorders: Yes - PULMONARY Hx Respiratory Disorders: Yes (SINUSITIS) - NEUROLOGICAL Hx Transient Ischemic Attacks (TIA): Yes (10/2016) - HEENT Hx HEENT Problems: Yes (Sinusitis) - RENAL Hx Chronic Kidney Disease: No - ENDOCRINE/METABOLIC Hx Endocrine Disorders: No - HEMATOLOGICAL/ONCOLOGICAL Hx Blood Disorders: No - INTEGUMENTARY Hx Dermatological Problems: No - MUSCULOSKELETAL/RHEUMATOLOGICAL Hx Falls: No - GASTROINTESTINAL Hx Gastrointestinal Disorders: No - GENITOURINARY/GYNECOLOGICAL Hx Urinary Tract Infection: Yes - PSYCHIATRIC Hx Psychophysiologic Disorder: No Hx Substance Use: No - SURGICAL HISTORY Hx Surgeries: No - ANESTHESIA Hx Anesthesia: No Meds Allergies/Adverse Reactions: Allergies Allergy/AdvReac Type Severity Reaction Status Date / Time No Known Allergies Allergy Verified 10/14/17 06:18 - Medications Medications: Current Medications Apixaban (Eliquis) 5 mg PO BID [facility] PRN Reason: Protocol Last Admin: 10/16/17 17:22 Dose: 5 mg Atorvastatin Calcium (Lipitor) 10 mg PO DIN [facility] Last Admin: 10/16/17 17:22 Dose: 10 mg Famotidine (Pepcid) 40 mg PO HS [facility] Last Admin: 10/15/17 22:51 Dose: 40 mg Folic Acid (Folic Acid) 1 mg PO DAILY [facility] Levothyroxine Sodium (Synthroid) 100 mcg PO 0600 [facility] Physical Exam - Constitutional Appears: Well, Non-toxic, No Acute Distress - Head Exam Head Exam: ATRAUMATIC, NORMAL INSPECTION, NORMOCEPHALIC - Eye Exam Eye Exam: EOMI, Normal appearance - ENT Exam ENT Exam: Mucous Membranes Moist - Respiratory Exam Respiratory Exam: NORMAL BREATHING PATTERN. absent: Accessory Muscle Use, Respiratory Distress - GI/Abdominal Exam GI & Abdominal Exam: Soft. absent: Distended, Guarding, Mass, Tenderness - Extremities Exam Extremities exam: Positive for: normal inspection. Negative for: calf tenderness, pedal edema - Neurological Exam Neurological exam: Alert, CN II-XII Intact, Oriented x3 Additional comments: Bilateral muscle strength intact. No sensory deficits. Bilateral upper extremity peripheral pulses intact - Psychiatric Exam Psychiatric exam: Normal Affect, Normal Mood - Skin Skin Exam: Dry, Intact, Normal Color, Warm Results - Vital Signs Recent Vital Signs: Last Vital Signs Temp 98.9 F 10/16/17 16:00 Pulse 74 10/16/17 18:00 Resp 20 10/16/17 16:00 BP 116/75 10/16/17 16:00 Pulse Ox 98 10/16/17 16:00 - Labs Result Diagrams: 10/15/17 06:50 10/15/17 06:50 Labs: Laboratory Results - last 24 hr 10/15/17 10/16/17 06:50 17:00 ESR 20 Homocysteine 12.3 H Assessment & Plan - Assessment and Plan (Free Text) Assessment: 52yo F with left internal carotid artery thrombus - F/u Repeat Carotid Duplex. Ordered - continue medial management - Agree with anticoagulation Further recs as per Dr. Oscar Sweeney PGY1 surgery pager: [phone]
--- NOTE | 2017-10-17 01:31 | CON ---
HOSPITAL CONSULT DATE: 10/16/2017 Mrs. Vickie Dejesus's hospital visit on the medical floor. For Dr. Trent, CHIEF COMPLAINT: CVA. HISTORY OF PRESENT ILLNESS: The patient is a 52-year-old female seen, lying awake in bed with the patient reporting being admitted 2 days prior for significant weakness in her right upper extremity numbness and weakness, but the patient reporting that she kept dropping things. It also should be noted that the patient has similar episode in October of this year for which aspirin and Lipitor were prescribed with the patient noncompliant in taking her medication. Upon further evaluation, the patient was noted to have a CVA as per Dr. Jauregui, Neurology with positive findings on the MRI of the brain with Eliquis begun with the patient now asymptomatic and feeling better. She is in otherwise in no acute distress at this time. ALLERGIES: NO KNOWN ALLERGIES. PRESENT MEDICATIONS: Includes Eliquis, potassium, Lipitor, Pepcid, and Synthroid. The patient was noncompliant in taking aspirin and Lipitor as an outpatient. PAST MEDICAL HISTORY: Denied for any significant past history except for similar possible CVA event in October of this year and possible hypothyroidism. FAMILY HISTORY AND SOCIAL HISTORY: The patient is nonsmoker, nonethanolic, 2 brothers, one brother alive and well and one brother dying of acute renal failure, and one sister dying of cancer of the lung. Two children, one daughter and one son alive and well. The patient works as a daycare highway patrol officer. REVIEW OF SYSTEMS: A 12-point review of systems was done, which was negative except as I mentioned in the history of present illness. PHYSICAL EXAMINATION: VITAL SIGNS: Temperature 98.9, pulse 74, respirations 20, blood pressure 116/75, and pulse ox 98%. HEENT: Unremarkable. NECK: Supple. HEART: Regular rate. LUNGS: Clear. ABDOMEN: Soft and nontender. EXTREMITIES: No edema. SKIN: Warm and dry. NEUROLOGIC: Awake, alert, and oriented x3. She now has equal stock speculator bilaterally and reports no deficits to her right upper extremity, which was initially very weak, so the patient was unable to grasp items with her hand. LABORATORY DATA: The patient's labs were done; white blood cell count of 10.3, hemoglobin 13.0, hematocrit of 41.5, and platelet count 627,000 with an INR of 1.25 dated from 2 days prior. Her chem panel showed a homocystine of 12.3, with TSH of 29.3, iron saturation of 15%; otherwise, normal chem metabolic panel. Urinalysis showed trace blood with urine culture positive for Gram-positive cocci 10 to 50,000 colonies. The patient did have an MRI of the brain done on 10/14/2017, which was read as left ADALBERTO, MCA and MCA-INTERN BRAND watershed territory acute border zone infarctions, right MCA-INTERN BRAND territory acute border zone infarctions, and mild chronic microangiopathic changes. Her CT of her head done earlier that day, however, was read as no evidence of acute intracranial hemorrhage, midline shift or mass effect is with acute infarction may not be visible for up to 24 to 48 hours. The patient had EKG done. The EKG was on 10/14/2017, it was read as normal sinus rhythm with nonspecific T-wave abnormality. Her chest x-ray was done on the same day, it was read as no active disease and no significant interval change compared with prior examinations. The patient had MRA of the head done on 10/14/2017, it was read as normal MR angiography of the brain, carotid ultrasound was also done on 10/14/2017, it was read as free floating partially occlusive thrombus in the left ICA or it just may be cardioembolic in origin, 0 to 19% proximal ICA stenosis, and antegrade flow in both vertebral arteries. Read by Dr. Damien Mcneil on 10/14/2017. The patient had MRA of her neck done on 10/15/2017, it was read as no evidence of carotid stenosis, vertebral tortuosity without stenosis or occlusion. Her echocardiogram was done on 10/15/2017, it was read as left ventricular normal size, mild LVH. ASSESSMENT: For this patient is that of new cerebrovascular accident, history of questionable cerebrovascular accident resolved, rule out hypercoagulability, thrombocythemia, hypothyroidism, and hyperlipidemia. PLAN: Plan for this patient after conservation with Dr. Trent is to continue the hypercoagulability workup, which was begun by Dr. Jauregui with factor V Leiden, factor V activity, protein serious activity, and prothrombin gene analysis could be done, to continue her Eliquis and the patient will be monitored clinically with labs with the prognosis for this patient guarded. Waqas Naranjo MD
--- NOTE | 2017-10-17 03:59 | PN ---
SUBJECTIVE: The patient is seen and examined at the bedside, looking comfortable. Has history of right-sided heaviness, status post embolic CVA. No fever. No chills. No nausea, vomiting, or diarrhea. No hematuria or hematochezia. No swelling of the legs. No chest pain or palpitation. No headache or dizziness. PHYSICAL EXAMINATION: VITAL SIGNS: Temperature 98.4, pulse 80, blood pressure 110/58, respiratory rate 20, and oxygen saturation 100%. HEENT: Head, normocephalic and atraumatic. Eyes, PERRLA. Extraocular muscles are intact. Conjunctivae clear. Nose patent. NECK: Supple. No carotid bruits. No JVD or thyromegaly. CHEST: Bilaterally symmetrical. HEART: S1 and S2 positive. LUNGS: Clear to auscultation. ABDOMEN: Soft. Bowel sounds present. No organomegaly. EXTREMITIES: No edema. No cyanosis. NEUROLOGIC: The patient is awake and alert. Moving all four extremities. No focal deficits. MEDICATIONS: Eliquis, Lipitor, Pepcid, and Synthroid. LABORATORY DATA: White blood cells of 11.3, hemoglobin of 13.0, hematocrit of 41.5, and platelets of 627. Sodium of 142, potassium 3.8, BUN 11, creatinine 0.8, calcium 9.2. ASSESSMENT AND PLAN: Ms. Vickie Deejsus is a 52-year-old lady with iron deficiency, hypothyroidism, high homocystine, low vitamin B12, has ketonuria,hematuria, urinary tract infection. Seen by Dr. Maxime Jauregui, neurologist, history of transient ischemic attack in the past and history of dyslipidemia. MRI of the brain showed bilateral infarction, carotid Doppler shows free flowing thrombus in the internal carotid and neck MRI shows no significant carotid artery stenosis. Given her infarction of bilateral cardioembolic phenomena, the patient is getting aspirin and Eliquis 2.5 mg p.o. b.i.d. from a neurologic perspective for stroke prevention. Hypercoagulable state workup is pending, we will call a Hematology consult with Dr. Trent. The patient has urine culture gram-positive cocci, consult ID Dr. Biggs, he ordered some workup. Discussion done with patient and the patient's nursing staff. The patient has history of thrombocytosis, history of hypercholesterolemia. The patient had a repeat echocardiography that shows left ventricular hypertrophy. The patient is getting Lipitor, Pepcid, Synthroid, suggesting long-term anticoagulation, Cardiology agreed 5 mg Eliquis, Neuro agreed 2.5 mg Eliquis. According to Cardiology, they want to discontinue Lovenox and aspirin. We will continue further treatment. Gastrointestinal and deep venous thrombosis prophylaxis. Repeat labs. We will follow. Breann Singh MD
[2017-10-17] MEDS ORDERED: Levothyroxine 100 MCG TAB PO SCH (06:00)
[2017-10-17 06:34] LABS: BASO # 0.01 K/mm3 (0.0-2.0); BASO % 0.1 % (0.0-3.0); EOS # 0.1 (0.0-0.7); EOS % 1.3 % (1.5-5.0); GRAN # 5.4 (1.4-6.5); GRAN % 62.1 % (50.0-68.0); HEMOGLOBIN 12.6 g/dL (12.0-16.0); LYMPH # 2.5 (1.2-3.4); LYMPH % 28.6 % (22.0-35.0); MEAN CELL VOLUME 93.1 fl (80.0-105.0); MEAN CORPUSCULAR HEMOGLOBIN 28.9 pg (25.0-35.0); MEAN PLATELET VOLUME 9.6 fl (7.0-11.0); MONO # 0.7 (0.1-0.6); MONO % 7.9 % (1.0-6.0); RBC 4.36 10^6/uL (3.5-6.1); RED CELL DISTRIBUTION WIDTH 13.6 % (11.5-14.5); WHITE BLOOD COUNT 8.7 10^3/ul (4.5-11.0)
[2017-10-17 06:48] LABS: ALBUMIN 4.1 g/dL (3.0-4.8); ALT/SGPT 30 U/L (7-56); AST/SGOT 33 U/L (14-36); BLOOD UREA NITROGEN 12 mg/dL (7-21); CALCIUM 9.2 mg/dL (8.4-10.5); GFR AFRICAN-AMERICAN > 60; GFR NON-AFRICAN AMERICAN > 60
[2017-10-17 10:12] VITALS: BP 110/66; RESP 20; TEMP 98.3; O2SAT 97
--- NOTE | 2017-10-17 10:47 | CP.PCM.PN ---
Subjective - Date & Time of Evaluation Date of Evaluation: 10/17/17 Time of Evaluation: 10:45 - Subjective Subjective: Vascular surgery Pt s&e. NAEON. Denies motor weakness, HERNANDEZ, vision changes, LOC, N, V. Objective - Vital Signs/Intake and Output Vital Signs (last 24 hours): Temp Pulse Resp BP Pulse Ox 98.3 F 64 20 110/66 97 10/17/17 06:00 10/17/17 06:00 10/17/17 06:00 10/17/17 06:00 10/17/17 06:00 Intake and Output: 10/17/17 10/17/17 06:59 18:59 Intake Total 840 0 Balance 840 0 - Medications Medications: Current Medications Apixaban (Eliquis) 5 mg PO BID [facility] PRN Reason: Protocol Last Admin: 10/17/17 09:19 Dose: 5 mg Atorvastatin Calcium (Lipitor) 10 mg PO DIN [facility] Last Admin: 10/16/17 17:22 Dose: 10 mg Famotidine (Pepcid) 40 mg PO HS [facility] Last Admin: 10/16/17 22:07 Dose: 40 mg Folic Acid (Folic Acid) 1 mg PO DAILY [facility] Last Admin: 10/17/17 09:19 Dose: 1 mg Levothyroxine Sodium (Synthroid) 100 mcg PO 0600 [facility] Last Admin: 10/17/17 06:03 Dose: 100 mcg - Labs Labs: 10/17/17 05:30 10/17/17 05:30 PT 13.8 SECONDS (9.4-12.5) H 10/14/17 06:28 INR 1.25 (0.93-1.08) H 10/14/17 06:28 APTT 30.3 Seconds (25.1-36.5) 10/14/17 06:28 - Constitutional Appears: Well - Head Exam Head Exam: ATRAUMATIC, NORMAL INSPECTION, NORMOCEPHALIC - Eye Exam Eye Exam: EOMI, Normal appearance, PERRL Pupil Exam: NORMAL ACCOMODATION, PERRL - ENT Exam ENT Exam: Mucous Membranes Moist, Normal Exam - Neck Exam Neck Exam: Full ROM, Normal Inspection. absent: Lymphadenopathy - Respiratory Exam Respiratory Exam: Clear to Ausculation Bilateral, NORMAL BREATHING PATTERN - Cardiovascular Exam Cardiovascular Exam: REGULAR RHYTHM, +S1, +S2. absent: Murmur - GI/Abdominal Exam GI & Abdominal Exam: Soft, Normal Bowel Sounds. absent: Tenderness - Extremities Exam Extremities Exam: Full ROM, Normal Capillary Refill, Normal Inspection. absent : Joint Swelling, Pedal Edema - Back Exam Back Exam: NORMAL INSPECTION - Neurological Exam Neurological Exam: Alert, Awake, CN II-XII Intact, Normal Gait, Oriented x3 - Psychiatric Exam Psychiatric exam: Normal Affect, Normal Mood - Skin Skin Exam: Dry, Intact, Normal Color, Warm Assessment and Plan - Assessment and Plan (Free Text) Assessment: 52yo F with left internal carotid artery thrombus - F/u Repeat Carotid Duplex. Ordered - continue medial management - Agree with anticoagulation Further recs as per Dr. Moore
--- NOTE | 2017-10-17 11:44 | US ---
PROCEDURE: Left carotid artery duplex ultrasound HISTORY: Left carotid embolus. Follow-up PHYSICIAN(S): Damien Mcneil MD. TECHNIQUE: FINDINGS: . IMPRESSION: There has been minimal recanalization of the thrombus at the left ICA origin. Peak systolic velocity is 73 cm/second. This corresponds to a 20-39 percent residual stenosis. Antegrade flow in the left vertebral artery
[2017-10-17 12:13] VITALS: PULSE 59
--- NOTE | 2017-10-17 14:01 | PN ---
DATE: 10/17/2017 SUBJECTIVE: The patient seen in bed in no acute distress. She is doing better on exam. PHYSICAL EXAMINATION: VITAL SIGNS: Temperature is 98, blood pressure 110/50, respiratory rate of 20, heart rate of 64. HEENT: Unremarkable. NECK: Supple. LUNGS: Decreased breath sounds. HEART: Normal S1 and S2. ABDOMEN: Soft and nontender. LABORATORY DATA: Revealed a white count of 8.7, hemoglobin of 12, platelets of 630. Coagulation is noted. Chemistry reveals a BUN of 12, creatinine of 0.8, and homocysteine level of 12.3. Urinalysis is noted. The patient's HIV is negative. Microbiology reveals a gram-positive cocci, and review of order reveals that the patient is on no antibiotics. Dr. Singh's note is reviewed. Dr. Sweeney's consult is reviewed. ASSESSMENT AND PLAN: This is a 52-year-old history of cerebrovascular accident, hyperlipidemia, right-sided numbness, and history of sinusitis, and found to have clot and Infectious Disease consultation requested because of Gram-positive cocci in urine. The patient also has a history miscarriage in the past and hypercoagulable state, antiphospholipid antibody and antiphospholipid syndrome and lupus anticoagulant evaluation. Orders have been placed. HIV is negative. No need for antibiotics as far as the Gram-positive cocci in the urine is concerned, low count, and the patient with no urinary symptoms, and we will follow closely with you. Henrry Biggs MD
--- NOTE | 2017-10-17 14:55 | CP.PCM.PN ---
Subjective - Date & Time of Evaluation Date of Evaluation: 10/17/17 Time of Evaluation: 11:00 - Subjective Subjective: DATE: 10/17/2017 NEUROLOGY FOLLOWUP CHIEF COMPLAINT: Followup for right-sided heaviness, status post embolic CVA. SUBJECTIVE: The patient is seen and examined at the bedside. She no longer has any weakness. She is now on Eliquis for stroke prevention since her strokes are more embolic in nature. PAST MEDICAL HISTORY: Hyperlipidemia and history of TIAs in the past. SOCIAL HISTORY: No illicit drug use, smoking, or EtOH abuse. ALLERGIES: NO KNOWN DRUG ALLERGIES. MEDICATIONS: Reviewed by nurse per reconciliation sheet. REVIEW OF SYSTEMS: A 14-point review of systems negative as mentioned in the HPI. PHYSICAL EXAMINATION: GENERAL: The patient is sitting up in bed, in no acute distress. VITAL SIGNS: Reviewed. respiratory rate of 20, and oxygen saturation of 100% on room air. HEENT: Head is atraumatic and normocephalic. PERRLA. Extraocular muscles are intact. NECK: Supple. No JVD. No adenopathy noted. LUNGS: Clear to auscultation. No adventitious sounds. HEART: S1 and S2. Normal rate, normal rhythm. No murmurs, rubs, or gallops. ABDOMEN: Soft, nontender and nondistended. Bowel sounds are present. EXTREMITIES: No clubbing. No cyanosis. Peripheral pulses are 2+ bilaterally. NEUROLOGIC: The patient is alert, oriented to person, place, month, and year. Speech is fluent without any errors. Cranial nerves II through XII are intact. Motor exam, moves all extremities equally with very minimally reduced right finger tap when compared to left. Toes are upgoing bilaterally. Sensory exam: Light touch, pinprick, proprioception, and vibration intact. DTRs are 2+ throughout. Coordination: [id number] intact. Gait is deferred for now. LABORATORY DATA: No new labs done today. Elevated homocysteine of 12.3. ASSESSMENT AND PLAN: This is a 52-year-old woman with past medical history of transient ischemic attack in the past and history of dyslipidemia, presented with right arm heaviness, right leg heaviness in addition to numbness of the right side of the face, where she had an MRI of the brain which showed left anterior cerebral artery and middle cerebral artery infarcts along with right middle cerebral artery and posterior cerebral artery territory acute infarcts with positive carotid Doppler, which was showing free flowing thrombus in the internal carotid and neck MRA showing no significant carotid artery stenosis. Given that her infarctions are bilateral and cardioembolic, at this point, we recommend aspirin 81 mg with Eliquis 2.5 mg p.o. b.i.d. from a neurologic perspective for stroke prevention. Hypercoagulable workup ongoing. Follow up with warehouse production worker. Once cleared by ID and Hematology, the patient can be discharged home and follow up with me in the office. At this time, thank you for this followup. Maxime Jauregui MD Objective - Vital Signs/Intake and Output Vital Signs (last 24 hours): Temp Pulse Resp BP Pulse Ox 98.3 F 59 L 20 110/66 97 10/17/17 06:00 10/17/17 10:00 10/17/17 06:00 10/17/17 06:00 10/17/17 06:00 Intake and Output: 10/17/17 10/17/17 06:59 18:59 Intake Total 840 480 Balance 840 480 - Labs Labs: 10/17/17 05:30 10/17/17 05:30 PT 13.8 SECONDS (9.4-12.5) H 10/14/17 06:28 INR 1.25 (0.93-1.08) H 10/14/17 06:28 APTT 30.3 Seconds (25.1-36.5) 10/14/17 06:28
--- NOTE | 2017-10-17 16:22 | PN ---
DATE: 10/17/2017 REASON FOR CONSULTATION AND FOLLOWUP: Shaking, numbness, and weakness of the right arm. SUBJECTIVE: The patient is lying comfortably in bed, fully conscious, alert, and moving all extremities. Denies any chest pain, shortness of breath or palpitation. PHYSICAL EXAMINATION: VITAL SIGNS: Blood pressure 110/54, respirations 22, pulse 64, and temperature 98.3. HEENT: Head is normocephalic. Eyes: Pupils are normal. Conjunctivae are normal. Nose and throat are normal. NECK: JVP low. Carotids are equal. THORAX: AP diameter normal. LUNGS: Clear. CARDIOVASCULAR: S1 and S2. ABDOMEN: Soft. No tenderness. No organomegaly. Bowel sounds are normal. EXTREMITIES: No clubbing. No cyanosis. LABORATORY DATA: WBC 8.7, hemoglobin 12.6, hematocrit 40.6, and platelets 630. Sodium 142, potassium 4.1, BUN 12, creatinine 0.8, phosphorus 5.0, calcium 9.2, and magnesium 2.0. AST, ALT, total protein, and albumin normal. TSH 29.30. Carotid ultrasound repeated today and it shows recanalization of the thrombus of left carotid artery and residual stenosis now is 20 to 39%. DIAGNOSES: History of hypothyroidism, MRI of the brain showed acute borderline infarcts. Carotid ultrasound repeated today and it shows recanalization of the thrombus of left carotid artery and now residual stenosis 20-39% at this moment. History of thrombocytosis, history of hypercholesterolemia, hypothyroidism, multiple areas of brain showing changes of infarcts. Echo on this admission does not show any thrombus cardiac chambers. Bubble study was also done previously and it failed to show any PFO. PLAN: The patient's repeat carotid ultrasound today showed recanalization of the thrombus of left carotid and residual stenosis now at 20-39%, suggest to continue anticoagulation. The patient is on aspirin 81 mg daily, Eliquis 5 mg b.i.d., Lipitor 10 mg daily, Pepcid 40 daily, Synthroid 100 mcg p.o. daily, initiate was 50 mcg now is increased to 100 mcg because of severe hypothyroidism. We will continue present therapy. We will follow with you. Homero Patrick MD
--- NOTE | 2017-10-17 18:34 | CON ---
DATE: REASON FOR CONSULTATION: Symptomatic left carotid floating thrombus. HISTORY OF PRESENT ILLNESS: The patient is a 52-year-old woman who first presented in 10/2016 with the first of three episodes of right upper extremity paresthesia and paresis. At the time of presentation, the carotid Duplex always showed a free floating thrombus. The patient's transient ischemic attack resolved the first 2 times and she was placed on aspirin and statin. On 10/14/2017, she returned again with amaurosis fugax of left eye, again right upper extremity paresthesia and paresis. The episode again resolved in the hospital. Carotid Duplex showed a free-floating thrombus in the internal carotid artery with a small attachment to the arterial wall. MRI of the brain showed acute infarct at the watershed area between the anterior and middle cerebral artery. The patient's symptoms again resolved. She was placed on Eliquis and Plavix. PAST MEDICAL HISTORY: Negative for hypertension or diabetes. FAMILY HISTORY: Positive for lung cancer. Her father of lung cancer and one of her sibling of lung cancer at age 51. The family history is otherwise negative for thrombotic disease. PHYSICAL EXAMINATION: GENERAL: Shows a well-appearing woman in no distress. HEENT: Within normal limits. CHEST: Clear. CORONARY: Show regular rhythm and no murmur. EXTREMITIES: Show 2+ pulse. NEURO: Normal LABORATORY DATA: The original carotid Duplex on 10/14/2017 was reviewed showed a large thrombus with minimal attachment to the arterial wall. The left carotid Duplex was repeated at this time showing that the thrombus is much smaller and is firmly adherent to the wall and there is no floating component. Hypercoagulable workup is in progress. IMPRESSION AND PLAN: Recurrent transient ischemic attack or stroke due to free-floating thrombus in the left carotid. I agree with hypercoagulable workup as well as cardiac workup,prior to the workup being completed, the patient should be on anticoagulation. Sharyn Moore MD MTDD
--- NOTE | 2017-10-17 18:38 | PN ---
DATE: 10/17/2017 This is [facility] visit on the medical floor. For Dr. Trent. SUBJECTIVE: The patient is a 52-year-old female, seen lying awake in bed, feeling better today. 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 She had a similar episode in October of this year, one is referred to those records. She also had a visit now with Dr. Sharyn Moore, vascular surgeon, who reports that she should continue present medical regimen with a repeat duplex done with the patient now to continue present medical regimen and discharge when she is stable as per Dr. Singh. It should be noted that the patient discontinued her medical regimen that was given to her in October with the patient already admitted as above. The patient did have an ultrasound of her carotid done earlier today, it was read as minimal recanalization of the thrombus at the left ICA origin, corresponds to a 20% to 39% residual stenosis, antegrade flow in the left vertebral artery. OBJECTIVE/PHYSICAL EXAMINATION: VITAL SIGNS: Temperature 98.3, pulse 64, respirations 20, blood pressure 110/66, and pulse oximetry 97%. HEENT: Unremarkable. NECK: Supple. HEART: Regular rate. LUNGS: Clear. ABDOMEN: Soft. Nontender. EXTREMITIES: No edema. SKIN: Warm and dry. NEUROLOGIC: Awake, alert and oriented. No residual deficit from her CVA with equal senior digital designer on her right upper extremity. Skin is otherwise warm, dry and clear. LABORATORY DATA: The patient's labs were done. White blood cell count of 8.7, hemoglobin of 12.6, hematocrit of 40.6, platelet count of 630,000. Her chem metabolic panel was within normal range. HIV testing was nonreactive. The patient also had a battery of test that had been sent including factor V Leiden mutation, MTHFR DNA mutation, prothrombin gene analysis, anti-positive lipid antibody along with smear review. We will await to return these labs that were sent. ASSESSMENT: For this patient is that of no recent cerebrovascular accident, history of similar episode in 10/2016, rule out hypercoagulable state, thrombocythemia, hypothyroidism, hyperlipidemia, noncompliance. After conversation with Dr. Trent and Dr. Moore, the patient is to continue her present medical regimen, which includes Eliquis 5 mg daily, folic acid which was added by Dr. Trent, also Lipitor, Pepcid and Synthroid as per her primary doctor. We will also add aspirin 81 mg on a daily basis in addition to the Eliquis with the patient to be considered for Hydrea and follow up after discharge if should her platelet count remains elevated. She is to be discharged and followup would be in approximately 1 to [address] Trent in the office as an outpatient or earlier p.r.n. We will monitor clinically with labs. Waqas Naranjo MD
--- NOTE | 2017-10-17 21:35 | CP.PCM.DIS ---
<Angela Fan - Last Filed: 10/17/17 21:35> Provider - Provider Date of Admission: 10/14/17 12:30 Attending physician: Breann Singh MD Diagnosis - Discharge Diagnosis (1) CVA (cerebral vascular accident) Status: Acute (2) Hyperlipemia Status: Acute (3) Thrombophilia Status: Acute (4) Hypokalemia Status: Acute (5) Iron deficiency Status: Acute Hospital Course - Lab Results Lab Results: Micro Results 10/16/17 17:00 Blood Blood Culture - Preliminary NO GROWTH AFTER 24 HOURS 10/16/17 16:00 Blood Blood Culture - Preliminary NO GROWTH AFTER 24 HOURS Most Recent Lab Values WBC 8.7 10^3/ul (4.5-11.0) 10/17/17 05:30 RBC 4.36 10^6/uL (3.5-6.1) 10/17/17 05:30 Hgb 12.6 g/dL (12.0-16.0) 10/17/17 05:30 Hct 40.6 % (36.0-48.0) 10/17/17 05:30 MCV 93.1 fl (80.0-105.0) 10/17/17 05:30 MCH 28.9 pg (25.0-35.0) 10/17/17 05:30 MCHC 31.0 g/dl (31.0-37.0) 10/17/17 05:30 RDW 13.6 % (11.5-14.5) 10/17/17 05:30 Plt Count 630 10^3/uL (120.0-450.0) H 10/17/17 05:30 MPV 9.6 fl (7.0-11.0) 10/17/17 05:30 Gran % 62.1 % (50.0-68.0) 10/17/17 05:30 Lymph % (Auto) 28.6 % (22.0-35.0) 10/17/17 05:30 Stewart % (Auto) 7.9 % (1.0-6.0) H 10/17/17 05:30 Eos % (Auto) 1.3 % (1.5-5.0) L 10/17/17 05:30 Baso % (Auto) 0.1 % (0.0-3.0) 10/17/17 05:30 Gran # 5.40 (1.4-6.5) 10/17/17 05:30 Lymph # 2.5 (1.2-3.4) 10/17/17 05:30 Stewart # 0.7 (0.1-0.6) H 10/17/17 05:30 Eos # 0.1 (0.0-0.7) 10/17/17 05:30 Baso # 0.01 K/mm3 (0.0-2.0) 10/17/17 05:30 ESR 20 mm/hr (0.0-20.0) 10/16/17 17:00 PT 13.8 SECONDS (9.4-12.5) H 10/14/17 06:28 INR 1.25 (0.93-1.08) H 10/14/17 06:28 APTT 30.3 Seconds (25.1-36.5) 10/14/17 06:28 Sodium 142 mmol/L (132-148) 10/17/17 05:30 Potassium 4.1 mmol/L (3.6-5.0) 10/17/17 05:30 Chloride 103 mmol/L (98-107) 10/17/17 05:30 Carbon Dioxide 30 mmol/L (21-33) 10/17/17 05:30 Anion Gap 14 (10-20) 10/17/17 05:30 BUN 12 mg/dL (7-21) 10/17/17 05:30 Creatinine 0.8 mg/dl (0.7-1.2) 10/17/17 05:30 Est GFR ( Amer) > 60 10/17/17 05:30 Est GFR (Non-Af Amer) > 60 10/17/17 05:30 POC Glucose (mg/dL) 115 mg/dL (65-110) H 10/14/17 06:27 Random Glucose 95 mg/dL (70-110) 10/17/17 05:30 Hemoglobin A1c 5.1 % (4.2-6.5) 10/14/17 06:28 Calcium 9.2 mg/dL (8.4-10.5) 10/17/17 05:30 Phosphorus 5.0 mg/dL (2.5-4.5) H 10/17/17 05:30 Magnesium 2.0 mg/dL (1.7-2.2) 10/17/17 05:30 Iron 42 ug/dL (45-180) L 10/14/17 08:27 TIBC 288 ug/dL (265-497) 10/14/17 08:27 % Saturation 15 % (20-55) L 10/14/17 08:27 Total Bilirubin 0.7 mg/dL (0.2-1.3) 10/17/17 05:30 AST 33 U/L (14-36) 10/17/17 05:30 ALT 30 U/L (7-56) 10/17/17 05:30 Alkaline Phosphatase 58 U/L (38-126) 10/17/17 05:30 Troponin I < 0.01 ng/mL 10/14/17 06:28 Total Protein 8.0 g/dL (5.8-8.3) 10/17/17 05:30 Albumin 4.1 g/dL (3.0-4.8) 10/17/17 05:30 Globulin 3.9 gm/dL 10/17/17 05:30 Albumin/Globulin Ratio 1.0 (1.1-1.8) L 10/17/17 05:30 Triglycerides 86 mg/dL (35-160) 10/14/17 08:27 Cholesterol 179 mg/dL (130-200) 10/14/17 08:27 LDL Cholesterol Direct 85 mg/dL (0-129) 10/14/17 08:27 HDL Cholesterol 61 mg/dL (29-60) H 10/14/17 08:27 Vitamin B12 270 pg/mL (239-931) 10/14/17 08:27 Folate 13.9 ng/mL 10/14/17 08:27 Homocysteine 12.3 umol/L ( <10.4) H 10/15/17 06:50 TSH 3rd Generation 29.30 mIU/mL (0.46-4.68) H 10/15/17 06:50 Urine Color Yellow (YELLOW) 10/14/17 12:40 Urine Appearance Clear (CLEAR) 10/14/17 12:40 Urine pH 6.0 (4.7-8.0) 10/14/17 12:40 Ur Specific [place] 1.020 (1.005-1.035) 10/14/17 12:40 Urine Protein Negative mg/dL (<30 mg/dL) 10/14/17 12:40 Urine Glucose (UA) Negative mg/dL (NEGATIVE) 10/14/17 12:40 Urine Ketones Trace mg/dL (NEGATIVE) H 10/14/17 12:40 Urine Blood Trace-intact (NEGATIVE) H 10/14/17 12:40 Urine Nitrate Negative (NEGATIVE) 10/14/17 12:40 Urine Bilirubin Negative (NEGATIVE) 10/14/17 12:40 Urine Urobilinogen 0.2 E.U./dL (<1 E.U./dL) 10/14/17 12:40 Ur Leukocyte Esterase Moderate Sudha/uL (NEGATIVE) H 10/14/17 12:40 Urine RBC 1 - 3 /hpf (0-2) 10/14/17 12:40 Urine WBC 10 - 15 /hpf (0-6) 10/14/17 12:40 Ur Epithelial Cells 6 - 8 /hpf (0-5) 10/14/17 12:40 Amorphous Sediment Few 10/14/17 12:40 Urine Bacteria Many (NEG) 10/14/17 12:40 HIV 1&2 Ag/Ab, 4th Gen Nonreactive (Nonreactive) 10/16/17 17:00 Blood Type O POSITIVE 10/14/17 06:25 Antibody Screen Negative 10/14/17 06:25 BBK History Checked Patient has bt 10/14/17 06:25 Discharge Exam - Head Exam Head Exam: ATRAUMATIC, NORMAL INSPECTION, NORMOCEPHALIC Discharge Plan - Follow Up Plan Condition: FAIR Disposition: HOME/ ROUTINE Instructions: Depression (DC), Stroke (DC) <Breann Singh - Last Filed: 10/18/17 17:06> Provider - Provider Date of Admission: 10/14/17 12:30 Attending physician: Breann Singh MD Consults: neuro Diagnosis - Discharge Diagnosis (1) CVA (cerebral vascular accident) Status: Acute (2) Iron deficiency Status: Acute (3) TIA (transient ischemic attack) Status: Acute Priority: High Hospital Course - Lab Results Lab Results: Micro Results 10/16/17 17:00 Blood Blood Culture - Preliminary NO GROWTH AFTER 24 HOURS 10/16/17 16:00 Blood Blood Culture - Preliminary NO GROWTH AFTER 24 HOURS Most Recent Lab Values WBC 8.7 10^3/ul (4.5-11.0) 10/17/17 05:30 RBC 4.36 10^6/uL (3.5-6.1) 10/17/17 05:30 Hgb 12.6 g/dL (12.0-16.0) 10/17/17 05:30 Hct 40.6 % (36.0-48.0) 10/17/17 05:30 MCV 93.1 fl (80.0-105.0) 10/17/17 05:30 MCH 28.9 pg (25.0-35.0) 10/17/17 05:30 MCHC 31.0 g/dl (31.0-37.0) 10/17/17 05:30 RDW 13.6 % (11.5-14.5) 10/17/17 05:30 Plt Count 630 10^3/uL (120.0-450.0) H 10/17/17 05:30 MPV 9.6 fl (7.0-11.0) 10/17/17 05:30 Gran % 62.1 % (50.0-68.0) 10/17/17 05:30 Lymph % (Auto) 28.6 % (22.0-35.0) 10/17/17 05:30 Stewart % (Auto) 7.9 % (1.0-6.0) H 10/17/17 05:30 Eos % (Auto) 1.3 % (1.5-5.0) L 10/17/17 05:30 Baso % (Auto) 0.1 % (0.0-3.0) 10/17/17 05:30 Gran # 5.40 (1.4-6.5) 10/17/17 05:30 Lymph # 2.5 (1.2-3.4) 10/17/17 05:30 Stewart # 0.7 (0.1-0.6) H 10/17/17 05:30 Eos # 0.1 (0.0-0.7) 10/17/17 05:30 Baso # 0.01 K/mm3 (0.0-2.0) 10/17/17 05:30 ESR 20 mm/hr (0.0-20.0) 10/16/17 17:00 PT 13.8 SECONDS (9.4-12.5) H 10/14/17 06:28 INR 1.25 (0.93-1.08) H 10/14/17 06:28 APTT 30.3 Seconds (25.1-36.5) 10/14/17 06:28 Factor V see note 10/15/17 06:50 Sodium 142 mmol/L (132-148) 10/17/17 05:30 Potassium 4.1 mmol/L (3.6-5.0) 10/17/17 05:30 Chloride 103 mmol/L (98-107) 10/17/17 05:30 Carbon Dioxide 30 mmol/L (21-33) 10/17/17 05:30 Anion Gap 14 (10-20) 10/17/17 05:30 BUN 12 mg/dL (7-21) 10/17/17 05:30 Creatinine 0.8 mg/dl (0.7-1.2) 10/17/17 05:30 Est GFR ( Amer) > 60 10/17/17 05:30 Est GFR (Non-Af Amer) > 60 10/17/17 05:30 POC Glucose (mg/dL) 115 mg/dL (65-110) H 10/14/17 06:27 Random Glucose 95 mg/dL (70-110) 10/17/17 05:30 Hemoglobin A1c 5.1 % (4.2-6.5) 10/14/17 06:28 Calcium 9.2 mg/dL (8.4-10.5) 10/17/17 05:30 Phosphorus 5.0 mg/dL (2.5-4.5) H 10/17/17 05:30 Magnesium 2.0 mg/dL (1.7-2.2) 10/17/17 05:30 Iron 42 ug/dL (45-180) L 10/14/17 08:27 TIBC 288 ug/dL (265-497) 10/14/17 08:27 % Saturation 15 % (20-55) L 10/14/17 08:27 Total Bilirubin 0.7 mg/dL (0.2-1.3) 10/17/17 05:30 AST 33 U/L (14-36) 10/17/17 05:30 ALT 30 U/L (7-56) 10/17/17 05:30 Alkaline Phosphatase 58 U/L (38-126) 10/17/17 05:30 Troponin I < 0.01 ng/mL 10/14/17 06:28 Total Protein 8.0 g/dL (5.8-8.3) 10/17/17 05:30 Albumin 4.1 g/dL (3.0-4.8) 10/17/17 05:30 Globulin 3.9 gm/dL 10/17/17 05:30 Albumin/Globulin Ratio 1.0 (1.1-1.8) L 10/17/17 05:30 Triglycerides 86 mg/dL (35-160) 10/14/17 08:27 Cholesterol 179 mg/dL (130-200) 10/14/17 08:27 LDL Cholesterol Direct 85 mg/dL (0-129) 10/14/17 08:27 HDL Cholesterol 61 mg/dL (29-60) H 10/14/17 08:27 Vitamin B12 270 pg/mL (239-931) 10/14/17 08:27 Folate 13.9 ng/mL 10/14/17 08:27 Homocysteine 12.3 umol/L ( <10.4) H 10/15/17 06:50 TSH 3rd Generation 29.30 mIU/mL (0.46-4.68) H 10/15/17 06:50 Urine Color Yellow (YELLOW) 10/14/17 12:40 Urine Appearance Clear (CLEAR) 10/14/17 12:40 Urine pH 6.0 (4.7-8.0) 10/14/17 12:40 Ur Specific [place] 1.020 (1.005-1.035) 10/14/17 12:40 Urine Protein Negative mg/dL (<30 mg/dL) 10/14/17 12:40 Urine Glucose (UA) Negative mg/dL (NEGATIVE) 10/14/17 12:40 Urine Ketones Trace mg/dL (NEGATIVE) H 10/14/17 12:40 Urine Blood Trace-intact (NEGATIVE) H 10/14/17 12:40 Urine Nitrate Negative (NEGATIVE) 10/14/17 12:40 Urine Bilirubin Negative (NEGATIVE) 10/14/17 12:40 Urine Urobilinogen 0.2 E.U./dL (<1 E.U./dL) 10/14/17 12:40 Ur Leukocyte Esterase Moderate Sudha/uL (NEGATIVE) H 10/14/17 12:40 Urine RBC 1 - 3 /hpf (0-2) 10/14/17 12:40 Urine WBC 10 - 15 /hpf (0-6) 10/14/17 12:40 Ur Epithelial Cells 6 - 8 /hpf (0-5) 10/14/17 12:40 Amorphous Sediment Few 10/14/17 12:40 Urine Bacteria Many (NEG) 10/14/17 12:40 HIV 1&2 Ag/Ab, 4th Gen Nonreactive (Nonreactive) 10/16/17 17:00 Prothrombin Mut Interp see note 10/15/17 06:50 Prothrombin Gene Mutate see note 10/15/17 06:50 Prothromb Gene Review see note 10/15/17 06:50 Blood Type O POSITIVE 10/14/17 06:25 Antibody Screen Negative 10/14/17 06:25 BBK History Checked Patient has bt 10/14/17 06:25 - Hospital Course Hospital Course: pt was admitted with b/ l cva , thrombus in carotid , neuro on the case , got mri and carotid Doppler , started on eliquis , had hypothyroidism thyroxin started , cl by neuro and cardio for dc , will f/u pcp cardio and neuro as out pt Discharge Exam - Head Exam Head Exam: ATRAUMATIC, NORMAL INSPECTION, NORMOCEPHALIC - Eye Exam Eye Exam: EOMI, Normal appearance, PERRL Pupil Exam: NORMAL ACCOMODATION, PERRL - ENT Exam ENT Exam: Mucous Membranes Dry, Mucous Membranes Moist, Normal Exam, Normal External Ear Exam, Normal Oropharynx, TM's Normal Bilaterally - Neck Exam Neck exam: Full Rom, Lymphadenopathy, Meningismus, Normal Inspection, Tenderness , Thyromegaly - Respiratory Exam Respiratory Exam: Clear to PA & Lateral - Cardiovascular Exam Cardiovascular Exam: REGULAR RHYTHM - GI/Abdominal Exam GI & Abdominal Exam: Normal Bowel Sounds - Rectal Exam Rectal Exam: NORMAL INSPECTION - Exam Exam: Circumcision, NORMAL INSPECTION External exam: NORMAL EXTERNAL EXAM Speculum exam: NORMAL SPECULUM EXAM Bimanual exam: NORMAL BIMANUAL EXAM - Extremities Exam Extremities exam: full ROM, joint swelling, normal inspection - Back Exam Back exam: NORMAL INSPECTION - Neurological Exam Neurological exam: Abnormal Gait, Alert, CN II-XII Intact, Normal Gait, Oriented x3, Reflexes Normal - Psychiatric Exam Psychiatric exam: Normal Affect, Normal Mood - Skin Skin Exam: Dry, Intact, Normal Color, Warm Discharge Plan - Follow Up Plan Patient education suggested?: Yes Clinical Quality Measures - CQM - Stroke Antithrombotic Prescribed: Yes Contranindication/Reason for not providing: Risk for Bleeding Anticoagulation Prescribed for Atrial Flutter, Atrial Fibrillation and History of:: Yes Contranindication/Reason for not providing: Risk for Bleeding Statin prescribed: Yes
[2017-10-20 05:49] LABS: CARDIOLIPIN AB (IGA) <11 APL (<=11); CARDIOLIPIN AB (IGG) <14 GPL (<=14); CARDIOLIPIN AB (IGM) <12 MPL (<=12); PHOSPHATIDYLSERINE AB IGG <10 U/mL (<10); PHOSPHATIDYLSERINE AB IGM <25 U/mL (<25)
[2017-10-21 05:45] LABS: B2 GLYCOPROTEIN I AB(IGA) <9 SAU (<=20); B2 GLYCOPROTEIN I AB(IGG) <9 SGU (<=20); B2 GLYCOPROTEIN I AB(IGM) <9 SMU (<=20); PHOSPHATIDYLSERINE AB IGA <20 U/mL (<20)
== END 2017-10-17 14:21 | disposition home or self-care (01) | DRG 65 ==
LOC: ED 06:01 → ERH 06:59 → OBSVTOIN 12:30 → ERH 13:03 → 3RSO 13:44
PROVIDERS: ADMIT Internal Medicine; ATTEND Internal Medicine
DX: I63.513 Cerebral infarction due to unspecified occlusion or stenosis of bilateral middle cerebral arteries (principal); I63.522 Cerebral infarction due to unspecified occlusion or stenosis of left anterior cerebral artery; D68.59 Other primary thrombophilia; N39.0 Urinary tract infection, site not specified; E78.00 Pure hypercholesterolemia, unspecified; E78.5 Hyperlipidemia, unspecified; E87.6 Hypokalemia; I65.23 Occlusion and stenosis of bilateral carotid arteries; E03.9 Hypothyroidism, unspecified; Z86.73 Personal history of transient ischemic attack (TIA), and cerebral infarction without residual deficits; Z91.14 Patient's other noncompliance with medication regimen; Z91.19 Patient's noncompliance with other medical treatment and regimen; Z80.1 Family history of malignant neoplasm of trachea, bronchus and lung

== ENCOUNTER 2019-02-27 09:32 | Outpatient (CLI) | payer BC | END 2019-02-27 09:33 | disposition home or self-care (01) | LOC: RAD 09:32 | DX: Z12.31 Encounter for screening mammogram for malignant neoplasm of breast (principal); M81.0 Age-related osteoporosis without current pathological fracture ==